=== PATIENT | female | born 1955 | race Two or more races ===

== ENCOUNTER → 2016-07-30 | Outpatient (REF) | payer MEDICAID | LOC: M SFHCPLAZ 09:10 | PROVIDERS: ATTEND Nurse Practitioner Family | DX: I10 Essential (primary) hypertension (principal); E11.9 Type 2 diabetes mellitus without complications; E07.9 Disorder of thyroid, unspecified ==

== ENCOUNTER 2016-09-09 17:38 | Emergency (ER) | payer MEDICAID, OTHER ==
[~2016-09-09] VITALS: Ht 175.3 cm; Wt 77.1 kg
[2016-09-09] MEDS ORDERED: VITA500046 PO (18:03)
[2016-09-09] MEDS ORDERED: GING250C2 PO (18:03)
[2016-09-09] MEDS ORDERED: TIOT18INH INH (18:03)
[2016-09-09] MEDS ORDERED: SING10TA32 PO (18:03)
[2016-09-09] MEDS ORDERED: ASPI1TAB PO (18:03)
[2016-09-09] MEDS ORDERED: collagen (18:03)
[2016-09-09] MEDS ORDERED: GEMF600T PO (18:03)
[2016-09-09] MEDS ORDERED: FLON1SPR (18:03)
[2016-09-09] MEDS ORDERED: TOPR200T PO (18:03)
[2016-09-09] MEDS ORDERED: MAGN400C2 PO (18:03)
[2016-09-09] MEDS ORDERED: SIMV5TAB4 PO (18:03)
[2016-09-09] MEDS ORDERED: ACETAMINOPHEN 325 MG TAB PO ONE (20:15)
[2016-09-09 20:54] VITALS: BP 168/88
--- NOTE | 2016-09-10 00:26 | REP ---
Clinical: Trauma. Ecchymosis. Technique: AP, lateral, bilateral oblique views right hand. Findings: The osseous structures and joint spaces are intact and normal. There is no evidence for acute fracture or dislocation. Lateral view suggests soft tissue swelling overlying the metacarpophalangeal region. No subcutaneous emphysema or radiodense foreign body. Impression: Mild swelling. No acute fracture or dislocation. Signed by James Yeboah MD 09/10/2016 12:18 A
== END 2016-09-09 21:09 | disposition home or self-care (01) ==
LOC: M ED 18:56
DX: S60.221A Contusion of right hand, initial encounter (principal); J02.9 Acute pharyngitis, unspecified; R10.84 Generalized abdominal pain; X58.XXXA Exposure to other specified factors, initial encounter; Y92.9 Unspecified place or not applicable; Y93.9 Activity, unspecified; Y99.9 Unspecified external cause status; C34.90 Malignant neoplasm of unspecified part of unspecified bronchus or lung; I25.10 Atherosclerotic heart disease of native coronary artery without angina pectoris; I10 Essential (primary) hypertension; J45.909 Unspecified asthma, uncomplicated; K21.9 Gastro-esophageal reflux disease without esophagitis; F17.200 Nicotine dependence, unspecified, uncomplicated; Z79.82 Long term (current) use of aspirin; Z79.899 Other long term (current) drug therapy

== ENCOUNTER 2016-10-29 14:18 | Emergency (ER) | payer OTHER ==
[~2016-10-29] VITALS: Ht 175.3 cm; Wt 83.9 kg
[~2016-10-29 14:18] MED LIST changes: -AMOX500C PO; -ATOR1TAB19 PO; -CHEW500C2 PO; -DICY20TA11 PO; -DOCQ100C PO; -GARL1CAP PO; -GING250C PO; -IBUP-1114 PO; -MAGN1TAB25 PO; -METF500T PO; -SPIR1AER IN; -TOPR100T PO; -VITA-115 PO; -VITMTA PO
[2016-10-29] MEDS ORDERED: METF500T PO (14:49)
[2016-10-29] MEDS ORDERED: DICY20TA11 PO (14:49)
[2016-10-29] MEDS ORDERED: AMOX500C PO (14:49)
[2016-10-29] MEDS ORDERED: DOCQ100C PO (14:49)
[2016-10-29] MEDS ORDERED: ATOR1TAB19 PO (14:49)
[2016-10-29 15:35] LABS: BASO % 0.4 % (0.0-1.0); EOS # 0.1 K/mm3 (0.0-0.50); EOS % 1.5 % (0.0-3.0); LARGE UNSTAINED CELL # 0.2 K/mm3 (0.0-0.4); LARGE UNSTAINED CELL % 2.1 % (0.0-4.0); LYMPH # 3.3 K/mm3 (1.5-4.5); LYMPH % 37.2 % (24.0-44.0); MEAN CORPUSCULAR HEMOGLOBIN 31.3 pg (27.0-33.0); MEAN CORPUSCULAR HGB CONC 34.9 g/dl (32.0-36.5); MEAN CORPUSCULAR VOLUME 89.6 fl (80.0-96.0); MONO # 0.6 K/mm3 (0.0-0.8); MONO % 7.1 % (0.0-5.0); NEUTROPHILS # 4.4 K/mm3 (1.8-7.7); NEUTROPHILS % 51.7 % (36.0-66.0); PLATELET COUNT, AUTOMATED 176 k/mm3 (150-450); RED CELL DISTRIBUTION WIDTH 13.4 % (11.5-14.5); WHITE BLOOD COUNT 8.5 K/mm3 (4.0-10.0)
[2016-10-29 15:41] LABS: ALBUMIN/GLOBULIN RATIO 1.11 (1.00-1.93); ALKALINE PHOSPHATASE 79 U/L (45-117); ALT/SGPT 44 U/L (12-78); AMYLASE 51 U/L (25-115); ANION GAP 5 MEQ/L (8-16); AST/SGOT 22 U/L (15-37); BILIRUBIN,DIRECT < 0.1 MG/DL (0.0-0.2); BILIRUBIN,TOTAL 0.3 MG/DL (0.2-1.0); BLOOD UREA NITROGEN 19 MG/DL (7-18); CALCIUM LEVEL 9.4 MG/DL (8.5-10.1); CARBON DIOXIDE LEVEL 32 MEQ/L (21-32); CHLORIDE LEVEL 103 MEQ/L (98-107); GLOMERULAR FILTRATION RATE > 60.0 (>51); GLUCOSE, FASTING 102 MG/DL (70-105); POTASSIUM SERUM 4.3 MEQ/L (3.5-5.1); SODIUM LEVEL 140 MEQ/L (136-145); TOTAL PROTEIN 7.6 GM/DL (6.4-8.2)
--- NOTE | 2016-10-29 16:32 | REP ---
CT ABDOMEN AND PELVIS WITHOUT CONTRAST: CT abdomen and pelvis was performed without oral or IV contrast. Sagittal and coronal reconstruction images are performed. Visualized lung bases demonstrate mild fibrotic changes. Liver, spleen, adrenals, pancreas are grossly unremarkable. The patient has had cholecystectomy. I see no evidence of biliary dilatation. Tiny thor like calcification is seen in the right lower pole renal collecting system and another is seen in the left upper pole renal collecting system. No hydroureteronephrosis is seen. There are mild atherosclerotic calcifications of the abdominal aorta without aneurysm. There is no adenopathy. There is no free or free fluid. No bowel wall thickening is seen. There is no evidence of a pelvic mass. IMPRESSION: Tiny intrarenal calculus in each kidney without evidence of ureteral calculus or hydroureteronephrosis. No evidence of appendicitis. No free air or free fluid. No other significant acute abnormality. Signed by Eusebio Edouard MD 10/29/2016 04:50 P
[2016-10-29 18:13] LABS: METHADONE URINE NEGATIVE (NEGATIVE)
[2016-10-29] MEDS ORDERED: MAGN1TAB25 PO (19:33)
[2016-10-29] MEDS ORDERED: GING250C PO (19:33)
[2016-10-29] MEDS ORDERED: TOPR100T PO (19:33)
[2016-10-29] MEDS ORDERED: SPIR1AER IN (19:33)
[2016-10-29] MEDS ORDERED: GARL1CAP PO (19:36)
[2016-10-29] MEDS ORDERED: IBUP-1114 PO (19:36)
[2016-10-29] MEDS ORDERED: VITA-115 PO (19:36)
[2016-10-29] MEDS ORDERED: VITMTA PO (19:36)
[2016-10-29] MEDS ORDERED: CHEW500C2 PO (19:36)
[2016-10-29 20:24] VITALS: BP 132/78
--- NOTE | 2016-10-29 21:53 | ECGEPIP ---
Stationary ECG Study [facility] - ED Test Date: 2016-10-29 Pat Name: LISA LEGGETT Department: Room: - Gender: F A&P Technician: oumou : 1955 Requested By: CONNOR GIL Order Number: [id number] Reading MD: Theodore Luna Measurements Intervals [place] Rate: 60 P: 38 MT: 199 QRS: -1 QRSD: 92 T: -13 QT: 416 QTc: 417 Interpretive Statements SINUS RHYTHM INC. RBBB PRWP NSTTW ABNORMALITIES NO PRIORS Electronically Signed On 10-29-2016 21:53:15 EDT by Theodore Luna
== END 2016-10-29 20:46 | disposition home or self-care (01) ==
LOC: EDBD 14:18 → M ED 15:02
DX: N20.0 Calculus of kidney (principal); F20.9 Schizophrenia, unspecified; F31.9 Bipolar disorder, unspecified; E03.9 Hypothyroidism, unspecified; I10 Essential (primary) hypertension; J44.9 Chronic obstructive pulmonary disease, unspecified; E78.00 Pure hypercholesterolemia, unspecified; Z87.891 Personal history of nicotine dependence; Z79.899 Other long term (current) drug therapy; Z79.82 Long term (current) use of aspirin; Z79.84 Long term (current) use of oral hypoglycemic drugs; Z79.2 Long term (current) use of antibiotics

== ENCOUNTER → 2016-10-29 | Outpatient (REF) | payer OTHER ==
[~2016-10-29] MED LIST: AMOX500C PO; ASPI1TAB PO; ATOR1TAB19 PO; CHEW500C2 PO; DICY20TA11 PO; DOCQ100C PO; FLON1SPR; GARL1CAP PO; GEMF600T PO; GING250C PO; GING250C2 PO; IBUP-1114 PO; MAGN1TAB25 PO; MAGN400C2 PO; METF500T PO; SIMV5TAB4 PO; SING10TA32 PO; SPIR1AER IN; TIOT18INH INH; TOPR100T PO; TOPR200T PO; VITA-115 PO; VITA500046 PO; VITMTA PO; collagen
== END ==
LOC: M SFHCLERA 12:33
PROVIDERS: ATTEND Nurse Practitioner Family
DX: R10.9 Unspecified abdominal pain (principal)

== ENCOUNTER 2016-12-27 17:34 | Emergency (ER) | payer OTHER ==
[~2016-12-27] VITALS: Ht 175.3 cm; Wt 86.0 kg
[~2016-12-27 17:34] MED LIST changes: +AMOX500C PO; +ATOR1TAB19 PO; +CHEW500C2 PO; +DICY20TA11 PO; +DOCQ100C PO; +GARL10004 PO; +GING250C PO; +IBUP-1114 PO; +MAGN1TAB25 PO; +METF500T13 PO; +SPIR1AER INH; +TOPR100T PO; +VITA-115 PO; +VITMTA PO
[2016-12-27] MEDS ORDERED: TRAZ-136 PO (17:48)
[2016-12-27] MEDS ORDERED: REXU1TAB2 (17:48)
[2016-12-27] MEDS ORDERED: OXCA150T PO (17:48)
[2016-12-27 18:42] LABS: MEAN CORPUSCULAR HGB CONC 33.5 g/dl (32.0-36.5); MEAN CORPUSCULAR VOLUME 89.5 fl (80.0-96.0); RED CELL DISTRIBUTION WIDTH 13.3 % (11.5-14.5)
[2016-12-27 18:59] LABS: CONTROL LINE HCG INT CTR LINE PRESENT
[2016-12-27 19:02] LABS: METHADONE URINE NEGATIVE (NEGATIVE)
[2016-12-27 19:13] LABS: ALBUMIN 4.1 GM/DL (3.2-5.2); ALBUMIN/GLOBULIN RATIO 1.28 (1.00-1.93); ALKALINE PHOSPHATASE 77 U/L (45-117); ALT/SGPT 56 U/L (12-78); ANION GAP 6 MEQ/L (8-16); AST/SGOT 25 U/L (15-37); BILIRUBIN,DIRECT < 0.1 MG/DL (0.0-0.2); BILIRUBIN,TOTAL 0.3 MG/DL (0.2-1.0); BLOOD UREA NITROGEN 18 MG/DL (7-18); CARBON DIOXIDE LEVEL 30 MEQ/L (21-32); CHLORIDE LEVEL 104 MEQ/L (98-107); CREATININE FOR GFR 0.76 MG/DL (0.55-1.02); GLOMERULAR FILTRATION RATE > 60.0 (>51); GLUCOSE, FASTING 127 MG/DL (70-105); POTASSIUM SERUM 3.6 MEQ/L (3.5-5.1); SODIUM LEVEL 140 MEQ/L (136-145); TOTAL PROTEIN 7.3 GM/DL (6.4-8.2)
[2016-12-27] MEDS ORDERED: traZODone 100 MG TAB PO ONE (20:45)
[2016-12-27] MEDS ORDERED: OXcarbazepine 150 MG TAB PO SCH (21:00)
[2016-12-27] MEDS ORDERED: FLUTICASONE PROP 0.05% NASAL SPRAY 16 GM (FLONASE) ONE (21:00)
[2016-12-27] MEDS ORDERED: IBUPROFEN 600 MG TAB PO ONE (21:15)
[2016-12-28 13:15] VITALS: BP 159/83
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
== END 2016-12-28 13:16 | disposition home or self-care (01) ==
LOC: M ED 17:34
DX: F31.9 Bipolar disorder, unspecified (principal); I10 Essential (primary) hypertension; E11.9 Type 2 diabetes mellitus without complications; E78.5 Hyperlipidemia, unspecified; K44.9 Diaphragmatic hernia without obstruction or gangrene; M19.90 Unspecified osteoarthritis, unspecified site; Z85.118 Personal history of other malignant neoplasm of bronchus and lung; Z79.899 Other long term (current) drug therapy; Z79.82 Long term (current) use of aspirin; Z79.84 Long term (current) use of oral hypoglycemic drugs

== ENCOUNTER → 2017-01-07 | Outpatient (REF) | payer OTHER ==
[~2017-01-07] MED LIST changes: +ASPI81CH PO; +ATOR80TA59 PO; +BENZ0.5T PO; +CINN500C9 PO; +CIPR-249 PO; +D-50TAB PO; +HYDR-643 PO; +OMEP40CA2 PO; +OXCA150T PO; +RANI300T PO; +REXU1TAB2; +REXU1TAB4 PO; +RISP1TAB42 PO; +TRAZ-136 PO; +TURM500C3 PO; +VITA10002 PO; +ZINC30CA PO
[2017-01-07 20:15] LABS: ALBUMIN 4.4 GM/DL (3.2-5.2); ALBUMIN/GLOBULIN RATIO 1.52 (1.00-1.93); ALKALINE PHOSPHATASE 82 U/L (45-117); ALT/SGPT 42 U/L (12-78); ANION GAP 9 MEQ/L (8-16); AST/SGOT 24 U/L (15-37); BILIRUBIN,TOTAL 0.8 MG/DL (0.2-1.0); BLOOD UREA NITROGEN 8 MG/DL (7-18); CALCIUM LEVEL 9.1 MG/DL (8.5-10.1); CARBON DIOXIDE LEVEL 27 MEQ/L (21-32); CHLORIDE LEVEL 99 MEQ/L (98-107); CHOLESTEROL LEVEL 164 MG/DL (<200); CREATININE FOR GFR 0.64 MG/DL (0.55-1.02); FREE T4 1.11 NG/DL (0.76-1.46); GLOMERULAR FILTRATION RATE > 60.0 (>51); GLUCOSE, FASTING 103 MG/DL (70-105); POTASSIUM SERUM 3.9 MEQ/L (3.5-5.1); SODIUM LEVEL 135 MEQ/L (136-145); TOTAL PROTEIN 7.3 GM/DL (6.4-8.2); TRIGLYCERIDES LEVEL 235 MG/DL (<150)
[2017-01-07 20:28] LABS: BASO % 0.6 % (0.0-1.0); EOS # 0.1 K/mm3 (0.0-0.50); EOS % 1.1 % (0.0-3.0); LARGE UNSTAINED CELL # 0.1 K/mm3 (0.0-0.4); LYMPH # 2.3 K/mm3 (1.5-4.5); LYMPH % 34.1 % (24.0-44.0); MEAN CORPUSCULAR HEMOGLOBIN 30.8 pg (27.0-33.0); MEAN CORPUSCULAR HGB CONC 34.5 g/dl (32.0-36.5); MEAN CORPUSCULAR VOLUME 89.1 fl (80.0-96.0); MONO # 0.4 K/mm3 (0.0-0.8); MONO % 6.3 % (0.0-5.0); NEUTROPHILS # 3.8 K/mm3 (1.8-7.7); NEUTROPHILS % 55.8 % (36.0-66.0); PLATELET COUNT, AUTOMATED 175 k/mm3 (150-450); RED CELL DISTRIBUTION WIDTH 12.9 % (11.5-14.5); WHITE BLOOD COUNT 6.7 K/mm3 (4.0-10.0)
== END ==
LOC: M SFHCLERA 15:10
PROVIDERS: ATTEND Family Medicine
DX: Z00.00 Encounter for general adult medical examination without abnormal findings (principal); J44.9 Chronic obstructive pulmonary disease, unspecified

== ENCOUNTER → 2017-01-09 | Outpatient (REF) | payer OTHER ==
[2017-01-13 00:11] LABS: Lyme Disease IgG/IgM Antibodie <0.91 ISR (0.00-0.90); Lyme Disease IgM Ab Quantitati <0.80 index (0.00-0.79)
== END ==
LOC: M SFHCLERA 15:50
PROVIDERS: ATTEND Family Medicine
DX: S80.862A Insect bite (nonvenomous), left lower leg, initial encounter (principal); E53.8 Deficiency of other specified B group vitamins; W18.30XA Fall on same level, unspecified, initial encounter; Y92.009 Unspecified place in unspecified non-institutional (private) residence as the place of occurrence of the external cause

== ENCOUNTER 2017-01-22 00:49 | Inpatient (IN) | payer OTHER ==
[~2017-01-22] VITALS: Ht 174 cm; Wt 85.3 kg
[~2017-01-22 00:49] MED LIST changes: -ASPI81CH PO; -ATOR80TA59 PO; -BENZ0.5T PO; -CINN500C9 PO; -CIPR-249 PO; -D-50TAB PO; -HYDR-643 PO; -OMEP40CA2 PO; -RANI300T PO; -REXU1TAB4 PO; -RISP1TAB42 PO; -TURM500C3 PO; -VITA10002 PO; -ZINC30CA PO
[2017-01-22 02:04] LABS: MEAN CORPUSCULAR HEMOGLOBIN 31.1 pg (27.0-33.0); MEAN CORPUSCULAR HGB CONC 35.3 g/dl (32.0-36.5); MEAN CORPUSCULAR VOLUME 88.1 fl (80.0-96.0); RED CELL DISTRIBUTION WIDTH 13.1 % (11.5-14.5)
[2017-01-22] MEDS ORDERED: MAALOX 30 ML SUSP *UDC PO PRN (02:15)
[2017-01-22] MEDS ORDERED: ACETAMINOPHEN TAB 650MG DOSE (2X325MG) PO PRN (02:15)
[2017-01-22] MEDS ORDERED: traZODone 50 MG TAB PO PRN (02:15)
[2017-01-22] MEDS ORDERED: MOM 30ML SUSPENSION UDC PO PRN (02:15)
[2017-01-22] MEDS ORDERED: hydrOXYzine 25 MG TAB PO PRN (02:30)
[2017-01-22 02:44] LABS: METHADONE URINE NEGATIVE (NEGATIVE)
[2017-01-22 02:53] LABS: ALBUMIN 4.4 GM/DL (3.2-5.2); ALBUMIN/GLOBULIN RATIO 1.29 (1.00-1.93); ALKALINE PHOSPHATASE 84 U/L (45-117); ALT/SGPT 55 U/L (12-78); ANION GAP 10 MEQ/L (8-16); AST/SGOT 25 U/L (15-37); BILIRUBIN,DIRECT < 0.1 MG/DL (0.0-0.2); BILIRUBIN,TOTAL 0.4 MG/DL (0.2-1.0); BLOOD UREA NITROGEN 13 MG/DL (7-18); CALCIUM LEVEL 9.3 MG/DL (8.5-10.1); CARBON DIOXIDE LEVEL 28 MEQ/L (21-32); CHLORIDE LEVEL 99 MEQ/L (98-107); CREATININE FOR GFR 0.81 MG/DL (0.55-1.02); GLOMERULAR FILTRATION RATE > 60.0 (>51); GLUCOSE, FASTING 132 MG/DL (70-105); POTASSIUM SERUM 3.8 MEQ/L (3.5-5.1); SODIUM LEVEL 137 MEQ/L (136-145); TOTAL PROTEIN 7.8 GM/DL (6.4-8.2)
[2017-01-22 04:25] VITALS: BP 126/79
[2017-01-22] MEDS ORDERED: ZINC30CA PO (05:41)
[2017-01-22] MEDS ORDERED: BENZ0.5T PO (05:41)
[2017-01-22] MEDS ORDERED: OMEP40CA2 PO (05:41)
[2017-01-22] MEDS ORDERED: ATOR80TA59 PO (05:41)
[2017-01-22] MEDS ORDERED: CINN500C9 PO (05:41)
[2017-01-22] MEDS ORDERED: TURM500C3 PO (05:41)
[2017-01-22] MEDS ORDERED: HYDR-643 PO (05:41)
[2017-01-22] MEDS ORDERED: RANI300T PO (05:41)
[2017-01-22] MEDS ORDERED: ASPI81CH PO (05:41)
[2017-01-22] MEDS ORDERED: REXU1TAB4 PO (05:41)
[2017-01-22] MEDS ORDERED: VITA10002 PO (05:41)
[2017-01-22] MEDS ORDERED: D-50TAB PO (05:41)
[2017-01-22] MEDS: risperiDONE 0.5 MG TAB PO SCH ×2 (08:29→22:09)
[2017-01-22] MEDS ORDERED: ASPIRIN 81 MG CHEW TABLET PO PRN (10:15)
[2017-01-22] MEDS ORDERED: IBUPROFEN 400 MG TAB PO PRN (10:15)
[2017-01-22] MEDS: OMEPRAZOLE 20 MG CAP PO SCH (11:04)
[2017-01-22] MEDS: OXcarbazepine 150 MG TAB PO SCH ×2 (11:04→22:10)
[2017-01-22] MEDS: MAGNESIUM OXIDE 400 MG TAB (MAG-OX) PO SCH (11:04)
[2017-01-22] MEDS: VITAMIN D 1,000 INTERNATIONAL UNITS TABLET PO SCH (11:04)
--- NOTE | 2017-01-22 11:19 | HPEPDOC ---
Medical History and Physical Date of Admission Jan 22, 2017 at 02:27 History and Physical PCP: Dr Perez ATTENDING: Dr. Rian Odonnell HPI: 61yoM admitted to [facility] for unspecified psychotic disorder, being medically examined today. No acute medical complaints today. Denies any fevers, chills, weakness, fatigue, PRATER, CP, SOB, cough, palpitations, abdominal pain, N/V/D or changes in bowel or bladder habits. PMHx: Bipolar disorder Schizophrenia Hypothyroid/thyroid nodule. FNA 09/11 negative. Follows with [facility]. Osteoarthritis Dyslipidemia Fatty liver Spasmodic colon/IBS Allergic rhinitis Hiatal hernia Essential tremor Lymphoma History of lung cancer GERD/Sanchez's DM 2 Hypertension HSV PSHX: EGD [place] 09/11 gastritis. Tonsillectomy 3 Cholecystectomy Hysterectomy Cyst removed from lower extremity SOCHX: Resides in: [facility] Marital Status: Single Kids: 2 Employment: Unemployed Tobacco use: 1-2 per day ETOH: denies Illicit Drugs: Denies IV Drug Use: Denies Tattoos done unprofessionally: Denies FAMHX: Mother: Alive, Crohn's disease Father: , complications of diabetes Siblings: 2 brothers, one sister Alive, well Children: Alive, well Unexpected deaths due to medical reasons: None. ROS: As noted in HPI, otherwise 11pt ROS of systems reviewed and remarkable only for LMP unknown. PE: GEN: 61yoF, appears stated age. Well-nourished, well developed. No acute distress. Alert and oriented x 3. Tangential speech. HEENT: Normocephalic, atraumatic. Pupils are equal, round, and reactive to light. Extraocular movements are intact. No nystagmus appreciated. Sclera are nonicteric. Conjunctiva without injection. Nose midline. Nasal turbinates without bogginess. EACs both patent BL. TMs both visualized and ledezma with good cone of light, no bulging or erythema. No facial asymmetry. Moist mucous membranes. Dentition fair. Pharynx pink and moist, no cobblestoning. Neck supple , trachea midline. No lymphadenopathy or thyromegaly appreciated. CHEST: Regular rate and rhythm, +S1, +S2 LUNGS: Clear to auscultation bilaterally. No wheezes, rales, or rhonchi. Breathing appears symmetric and easy. Patient is speaking in full sentences. No accessory muscle use. ABD: Round, soft, non-tender, non-distended. +Bowel sounds throughout. No rebound or guarding. No costovertebral angle tenderness. EXT: Pulses 2+ bilaterally dorsalis pedis and radial. No lower extremity edema appreciated. SKIN: [place], dry, warm. Capillary refill <2sec. No rashes. NEURO: Alert and oriented x 3. Cranial nerves III-XII are intact. No focal deficits appreciated. EKG: pending. A&P: 61yoM admitted to [facility] for unspecified psychotic disorder 1. Psych. Plan per Psychiatry. Obtain baseline EKG to assure the safety of psychiatric medications as they can prolong the QT interval. 2. Nicotine dependence. Patch available. 3. Allergic rhinitis. Continue Flonase 2 sprays each nostril daily. 4. Follow up with PCP on discharge. 5. Dyslipidemia. Continue Lipitor 80 mg daily. 6. IBS. Continue dicyclomine 20 mg 3 times a day. 7. DM 2. Continue metformin 500 mg by mouth twice a day. Fingerstick blood sugar twice a day. A1c is noted to be 6.01/07/17. 8. COPD. Continue Spiriva 1 inhalation daily. 9. GERD/Sanchez's. Continue Prilosec 40 mg daily. 10. Hypertension. Continue Toprol-XL 100 mg daily. 11. Elevated TSH. Recheck TFTs in a.m. 12. Staff member Elisa present throughout exam. Vital Signs Vital Signs Date Time Temp Pulse Resp B/P (MAP) Pulse Ox O2 Delivery O2 Flow Rate FiO2 01/22/17 04:25 99.0 62 20 126/79 97 Room Air Laboratory Data Labs 24H Laboratory Tests 2 01/22/17 01:50: Anion Gap 10, Glomerular Filtration Rate > 60.0, Calcium Level 9.3, Aspartate Amino Transf (AST/SGOT) 25, Alanine Aminotransferase (ALT/SGPT) 55, Alkaline Phosphatase 84, Total Bilirubin 0.4, Direct Bilirubin < 0.1, Total Protein 7.8, Albumin 4.4, Albumin/Globulin Ratio 1.29, Thyroid Stimulating Hormone (TSH) 6.660H, Salicylates Level < 1.7L, Urine Amphetamines Screen NEGATIVE, Urine Benzodiazepines Screen NEGATIVE, Urine Opiates Screen NEGATIVE, Urine Methadone Screen NEGATIVE, Acetaminophen Level < 2.0L, Urine Barbiturates Screen NEGATIVE , Urine Phencyclidine Screen NEGATIVE, Urine Cocaine Metabolite Screen NEGATIVE , Urine Cannabinoids Screen NEGATIVE, Ethyl Alcohol Level < 0.003 CBC/BMP Laboratory Tests 01/22/17 01:50 Red Blood Count 4.93, Mean Corpuscular Volume 88.1, Mean Corpuscular Hemoglobin 31.1, Mean Corpuscular Hemoglobin Concent 35.3, Red Cell Distribution Width 13.1 Home Medications Scheduled (Flonase Allergy Relief) 50 Mcg/Act Spr, 2 SPRAYS NA BID for ALLERGIES (Spiriva Respimat) 1.25 Mcg/Act Aer, 2 PUFF INH DAILY for COPD Atorvastatin Calcium (Atorvastatin Calcium) 80 Mg Tab, 80 MG PO QHS for CHOLESTEROL Benztropine Mesylate (Benztropine Mesylate) 0.5 Mg Tab, 0.5 MG PO QHS for EPS PREVENTION Brexpiprazole (Rexulti) 2 Mg Tab, 2 MG PO QHS for DEPRESSION Cholecalciferol (D-5000) 5,000 Unit Tab, 5,000 UNIT PO DAILY for SUPPLEMENT Cinnamon Bark (Cinnamon) 500 Mg Cap, 1,000 MG PO DAILY for SUPPLEMENT Curcuma Longa (Turmeric) Extra (Turmeric) 500 Mg Cap, 500 MG PO DAILY for SUPPLEMENT Cyanocobalamin (Vitamin B-12) 1,000 Mcg Tab, 1,000 MCG PO BID for SUPPLEMENT Dicyclomine HCl (Dicyclomine HCl) 20 Mg Tab, 20 MG PO TID for IBS Magnesium Oxide (Magnesium) 400 Mg Tab, 400 MG PO DAILY for SUPPLEMENT Metformin Hydrochloride (Metformin HCl) 500 Mg Tab, 500 MG PO BID for DIABETES Metoprolol Succinate (Toprol Xl) 100 Mg Tab, 100 MG PO DAILY for HBP BEEN TAKING IT TWICE A DAY BUT RX IS FOR ONCE A DAY Omeprazole (Omeprazole) 40 Mg Cap, 40 MG PO DAILY for ACID REFLUX Oxcarbazepine (Oxcarbazepine) 150 Mg Tab, 150 MG PO BID for EPILEPSY BEEN TAKING MEDICATION 300 MG IN MORNING AND 150 MG AT NIGHT BUT RX IS FOR 150 MG BID Ranitidine HCl (Ranitidine HCl) 300 Mg Tab, 1 TAB PO QHS for ACID REFLUX Zinc (Zinc) 30 Mg Cap, 30 MG PO QHS for SUPPLEMENT Scheduled PRN (Aspirin) 81 Mg Chw, 243 MG PO QPM PRN for CHEST PAIN Hydroxyzine HCl (Hydroxyzine HCl) 10 Mg Tab, 10 MG PO TID PRN for ANXIETY Ibuprofen (Ibuprofen) 400 Mg Tab, 400 MG PO Q4H PRN for PAIN Trazodone HCl (Trazodone HCl) 100 Mg Tab, 100 MG PO QHS PRN for SLEEP Allergies Coded Allergies: No Known Drug Allergy (Unverified Allergy, Mild, 09/30/12) Brooke Dodge Jan 22, 2017 11:19
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
[2017-01-22] MEDS: FLUTICASONE PROP 0.05% NASAL SPRAY 16 GM (FLONASE) SCH (13:35)
[2017-01-22] MEDS: CYANOCOBALAMIN 500 MCG TAB PO SCH ×2 (13:36→22:09)
[2017-01-22] MEDS: metFORMIN (GLUCOPHAGE) 500 MG TAB PO SCH ×2 (13:36→18:25)
[2017-01-22] MEDS: DICYCLOMINE 10 MG CAP PO SCH ×3 (13:36→22:10)
[2017-01-22] MEDS: TIOTROPIUM INHALER/CAPSULE (SPIRIVA) INH SCH (13:37)
[2017-01-22] MEDS: METOPROLOL SUCC (TopROL XL) 100MG *XL* TAB PO SCH (13:37)
[2017-01-22 18:00] VITALS: BP 102/58
[2017-01-22] MEDS: ATORVASTATIN 20 MG TAB PO SCH (22:09)
--- NOTE | 2017-01-23 00:29 | ECGEPIP ---
Stationary ECG Study [facility] Test Date: 2017-01-22 Pat Name: LISA LEGGETT Department: Room: [place] [address] Gender: F Warehouse Shift Supervisor: SULAIMAN : 1955 Requested By: Brooke Dodge Order Number: [id number] Reading MD: Rian Odonnell Measurements Intervals [place] Rate: 64 P: 52 TX: 220 QRS: 2 QRSD: 100 T: 3 QT: 393 QTc: 408 Interpretive Statements SINUS RHYTHM WITH FIRST DEGREE AV BLOCK Delayed anterior R wave progression Nonspecific T wave abnormality Electronically Signed On 01-23-2017 0:29:31 EDT by Rian Odonnell
[2017-01-23 06:21] VITALS: BP 147/87
[2017-01-23] MEDS: FLUTICASONE PROP 0.05% NASAL SPRAY 16 GM (FLONASE) SCH (08:17)
[2017-01-23] MEDS: metFORMIN (GLUCOPHAGE) 500 MG TAB PO SCH ×2 (08:18→18:00)
[2017-01-23] MEDS: TIOTROPIUM INHALER/CAPSULE (SPIRIVA) INH SCH (08:18)
[2017-01-23] MEDS: METOPROLOL SUCC (TopROL XL) 100MG *XL* TAB PO SCH (08:18)
[2017-01-23] MEDS: DICYCLOMINE 10 MG CAP PO SCH ×3 (08:18→21:44)
[2017-01-23] MEDS: MAGNESIUM OXIDE 400 MG TAB (MAG-OX) PO SCH (08:19)
[2017-01-23] MEDS: OMEPRAZOLE 20 MG CAP PO SCH (08:19)
[2017-01-23] MEDS: CYANOCOBALAMIN 500 MCG TAB PO SCH ×2 (08:19→21:44)
[2017-01-23] MEDS: risperiDONE 0.5 MG TAB PO SCH ×2 (08:19→21:44)
[2017-01-23] MEDS: VITAMIN D 1,000 INTERNATIONAL UNITS TABLET PO SCH (08:19)
[2017-01-23] MEDS: OXcarbazepine 150 MG TAB PO SCH ×2 (08:19→21:44)
[2017-01-23 18:00] VITALS: BP 135/85
[2017-01-23] MEDS: CIPROFLOXACIN 500 MG TAB PO SCH (18:00)
[2017-01-23] MEDS: ATORVASTATIN 20 MG TAB PO SCH (21:44)
[2017-01-24] MEDS ORDERED: LEVOTHYROXINE 50MCG TABLET (0.05MG) PO SCH (06:00)
[2017-01-24] MEDS: CIPROFLOXACIN 500 MG TAB PO SCH ×2 (06:13→17:10)
[2017-01-24 06:31] VITALS: BP 146/92
[2017-01-24 08:29] VITALS: BP 132/72
[2017-01-24] MEDS: metFORMIN (GLUCOPHAGE) 500 MG TAB PO SCH ×2 (08:30→17:10)
[2017-01-24] MEDS: METOPROLOL SUCC (TopROL XL) 100MG *XL* TAB PO SCH (08:30)
[2017-01-24] MEDS: MAGNESIUM OXIDE 400 MG TAB (MAG-OX) PO SCH (08:31)
[2017-01-24] MEDS: OXcarbazepine 150 MG TAB PO SCH ×2 (08:31→20:40)
[2017-01-24] MEDS: CYANOCOBALAMIN 500 MCG TAB PO SCH ×2 (08:31→20:41)
[2017-01-24] MEDS: DICYCLOMINE 10 MG CAP PO SCH ×3 (08:31→20:41)
[2017-01-24] MEDS: VITAMIN D 1,000 INTERNATIONAL UNITS TABLET PO SCH (08:31)
[2017-01-24] MEDS: risperiDONE 1 MG TAB PO SCH ×2 (08:31→20:41)
[2017-01-24] MEDS: OMEPRAZOLE 20 MG CAP PO SCH (08:31)
[2017-01-24] MEDS: TIOTROPIUM INHALER/CAPSULE (SPIRIVA) INH SCH (08:32)
[2017-01-24] MEDS: FLUTICASONE PROP 0.05% NASAL SPRAY 16 GM (FLONASE) SCH (08:32)
[2017-01-24 18:11] VITALS: BP 132/86
[2017-01-24] MEDS: ATORVASTATIN 20 MG TAB PO SCH (20:41)
[2017-01-25] MEDS: CIPROFLOXACIN 500 MG TAB PO SCH ×2 (05:55→17:29)
[2017-01-25 06:01] VITALS: BP 138/92
[2017-01-25] MEDS: metFORMIN (GLUCOPHAGE) 500 MG TAB PO SCH ×2 (08:48→17:29)
[2017-01-25] MEDS: risperiDONE 1 MG TAB PO SCH ×2 (08:48→21:19)
[2017-01-25] MEDS: MAGNESIUM OXIDE 400 MG TAB (MAG-OX) PO SCH (08:48)
[2017-01-25] MEDS: OXcarbazepine 150 MG TAB PO SCH ×2 (08:48→21:19)
[2017-01-25] MEDS: CYANOCOBALAMIN 500 MCG TAB PO SCH ×2 (08:49→21:19)
[2017-01-25] MEDS: OMEPRAZOLE 20 MG CAP PO SCH (08:49)
[2017-01-25] MEDS: VITAMIN D 1,000 INTERNATIONAL UNITS TABLET PO SCH (08:49)
[2017-01-25] MEDS: DICYCLOMINE 10 MG CAP PO SCH ×3 (08:50→21:19)
[2017-01-25] MEDS: METOPROLOL SUCC (TopROL XL) 100MG *XL* TAB PO SCH (08:50)
[2017-01-25] MEDS: TIOTROPIUM INHALER/CAPSULE (SPIRIVA) INH SCH (08:50)
[2017-01-25] MEDS: FLUTICASONE PROP 0.05% NASAL SPRAY 16 GM (FLONASE) SCH (08:59)
[2017-01-25 18:19] VITALS: BP 139/81
[2017-01-25] MEDS: ATORVASTATIN 20 MG TAB PO SCH (21:19)
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
[2017-01-26] MEDS: CIPROFLOXACIN 500 MG TAB PO SCH (06:03)
[2017-01-26 06:35] VITALS: BP 149/73
[2017-01-26] MEDS: OMEPRAZOLE 20 MG CAP PO SCH (08:21)
[2017-01-26] MEDS: FLUTICASONE PROP 0.05% NASAL SPRAY 16 GM (FLONASE) SCH (08:21)
[2017-01-26] MEDS: TIOTROPIUM INHALER/CAPSULE (SPIRIVA) INH SCH (08:21)
[2017-01-26] MEDS: CYANOCOBALAMIN 500 MCG TAB PO SCH (08:21)
[2017-01-26 08:22] VITALS: BP 148/73
[2017-01-26] MEDS: risperiDONE 1 MG TAB PO SCH (08:22)
[2017-01-26] MEDS: metFORMIN (GLUCOPHAGE) 500 MG TAB PO SCH (08:22)
[2017-01-26] MEDS: OXcarbazepine 150 MG TAB PO SCH (08:22)
[2017-01-26] MEDS: VITAMIN D 1,000 INTERNATIONAL UNITS TABLET PO SCH (08:22)
[2017-01-26] MEDS: MAGNESIUM OXIDE 400 MG TAB (MAG-OX) PO SCH (08:22)
[2017-01-26] MEDS: METOPROLOL SUCC (TopROL XL) 100MG *XL* TAB PO SCH (08:22)
[2017-01-26] MEDS: DICYCLOMINE 10 MG CAP PO SCH ×2 (08:26→16:08)
--- NOTE | 2017-01-26 10:27 | MHIPN ---
DATE OF SERVICE: 01/24/2017 61-year-old female called 911 and complained of feeling that a worm was moving inside of her on her forehead. She says that she has been diagnosed as having worms by her primary care physician but he never did anything to treat her parasites. Patient reported having problems in her bowel, having problems with her housing because people walk into her apartment, stoled things, borrow things , left hair inside of the fridge. SUBJECTIVE: Patient says that her thoughts are more clear. She still has physical complaints, regarding her stomach and she still believes that she has worms but she is not as persistent with this information as she was before. She says she has had a good sleep, reports good appetite and good spirits. Denies suicidal ideation and denies psychosis. OBJECTIVE: Patient is alert, oriented times three, pleasant, cooperative and engaging. Her speech is soft spoken, coherent. Her thought process is irrational. Her thought content is still anxious upon physical complaints and doctor's appointment. She denies auditory hallucinations, visual hallucinations. Denies thought delusions. She still is not conscious about the sensation that she has of having a worm moving in her body of being a delusion. She still believes this is true. Her attention and concentration are fair. Her memory is limited. Her fund of knowledge is fair. Her mood and affect are euthymic. Her judgment and insight are limited. Her impulse control is good. ASSESSMENT: Unspecified psychotic disorder. MANAGEMENT: Patient will continue on the same medications. Currently, she is taking for her psychosis Risperdal 1 mg twice a day. She is taking trazodone 50 mg by mouth nightly as needed for insomnia, Atarax 25 mg by mouth by mouth every 6 hours as needed for anxiety and she is not taking any antidepressant because it is not clear if the patient suffers from bipolar disorder and for that reason no antidepressant was started on the patient, but she was not depressed either. The diagnosis seems to be more oriented towards a psychotic disorder, most likely a delusional disorder or schizophrenia. Patient is not dangerous to self or others. She is delusional but she is pleasant and she is not aggressive. It has been noticed that she suffers from a urinary tract infection and she was started on ciprofloxacin 500 mg by mouth twice a day. This urinary tract infection (UTI ) could have been influencing her mood and her mental changes. She also has thyroid nodules and thyroid and the thyroid compromise could be involved in her mental problems. Will wait until she improves from her medical problems and to try to rule out psychotic problem secondary to medical condition. Will followup and monitor closely. Edited: josep 02/09/2017 1417 MTDD
[2017-01-26] MEDS ORDERED: CIPR-249 PO (10:45)
[2017-01-26] MEDS ORDERED: RISP1TAB42 PO (10:45)
--- NOTE | 2017-01-26 17:31 | MHIPN ---
DATE: 01/25/2017 61-year-old female who was admitted because she called 911 and told them that she felt that a worm was growing inside of her belly and was moving around, she also felt it in her forehead. SUBJECTIVE: Patient reports feeling well, is requesting to get discharged tomorrow morning, says that she has already called her son to pick her up, and reports that she can not pick her appointment with her primary care provider because she wants to be put on levadopa once again. OBJECTIVE: Patient is alert, oriented times three, cooperative with interview, engaging. Her speech is soft and coherent, her thought process is irrational, her thought content is anxious about keeping her medical appointment. She denies homicidal and suicidal ideation. Denies auditory and visual hallucinations. Denies thought delusions. She has not been seen responding to internal stimuli but she has somatic delusions. Her memory is intact, attention and concentration are good, oriented times three. Abstract thinking is fair, mood and affect are brighter. Insight and judgment are limited and impulse control is good. ASSESSMENT: Delusional disorder, rule out schizophrenia. PLAN: Patient is in no danger to self or others, she could be discharged tomorrow depending on inquires from case picker Nadia, patients living situations, and if she is able to receive enough support from her children, neighbors. At this time patient is not suicidal, not homicidal and her psychosis has improved. Her thoughts are more clear, she is ready to be discharged. Will followup.
--- NOTE | 2017-01-26 22:05 | MHDSPDOC ---
[facility] Discharge Summary Discharge Summary DATE OF ADMISSION: Jan 22, 2017 at 02:27 DATE OF DISCHARGE: Jan 26, 2017 at 16:15 DISCHARGE DIAGNOSES: 1. Delusional Disorder 2. R/O Schizophrenia. REASON FOR ADMISSION: Patient called 911 because she felt a worm was moving inside her abdomen, she could feel it on her forehead too. CONSULTANTS INVOLVED: None TREATMENT AND PROGRESS ON THE UNIT : Patient was started on antipsychotic medication and she had a good response to it. She was still delusional with medications but she was never aggressive or violent, she was not paranoid or suspicions. She was pleasant and cooperative, fixed on multiple somatic complaints that involved the beleif she has Parkinson's disease, so she requested levodopa several times, she also believed she had a lymphoma and she kept thinking she had worms, but the frequency of these delusional thoughts decreased. She was never a danger to self or others. HOSPITAL COURSE: As above DISCHARGE ASSESSMENT: Patient was not suicidal, not homicidal, was not responding to internal stimuli. MENTAL STATUS EXAMINATION ON DISCHARGE: Patient is a 61-year old female, who is alert, cooperative, pleasant, with good eye contact. Speech is Normal. Language skills are fair. Thought processes including: Slightly tangential, irrational Thought content: Goal directed Abstract reasoning, and computation: Fair Description of associations: Good. Description of abnormal or psychotic thoughts: Delusional thoughts, somatic nature. Denies suicidal or homicidal ideation, denies auditory or visual hallucinations. Judgment: Fair. Insight: Limited. Orientation to Oriented x 3. Recent and remote memory: Fair. Attention span and concentration: Fair. Language: Normal. Fund of knowledge: Fair. Mood: "iI feel I'm in a better mood, my thoughts are more clear". Affect: Euthymic. MEDICATIONS ON DISCHARGE: - Risperdal 1 mg. PO BID for psychosis. - Trazodone 100 mgs PO QHS for insomnia - Trileptal 150 mgs PO BID for seizure disorder -Ciprofloxacin 500 mgs PO BID for UTI PLAN/FOLLOWUP ARRANGEMENTS: * Medical * Medical Follow Up [facility]- Dr. Yasmeen Perez * Established With This Provider Yes * Date Feb 05, 2017 * Time 08:00 * Address of Clinic or Practice [address] [place] [address] * * Mental Health Appt 1 * Established With This Provider Yes * Therapist Diandra Pulliam LCSW * Date Jan 30, 2017 * Time 13:00 * Address of Clinic or Practice [address] [place] [address] * The amount of time spent in the coordination of care for this patient was approximately 45 minutes. Vital Signs/I&Os Vital Signs Date Time Temp Pulse Resp B/P (MAP) Pulse Ox O2 Delivery O2 Flow Rate FiO2 01/26/17 08:22 66 148/73 01/26/17 06:35 97.3 18 01/22/17 04:25 97 Room Air Laboratory Data Microbiology Microbiology 01/23/17 Gastrointestinal Tract Panel (PCR) - Final, Complete 01/23/17 Urine Culture - Final, Complete Medications Scheduled (Flonase Allergy Relief) 50 Mcg/Act Spr, 2 SPRAYS NA BID for ALLERGIES, ( Reported) (Spiriva Respimat) 1.25 Mcg/Act Aer, 2 PUFF INH DAILY for COPD, (Reported) Atorvastatin Calcium (Atorvastatin Calcium) 80 Mg Tab, 80 MG PO QHS for CHOLESTEROL, (Reported) Benztropine Mesylate (Benztropine Mesylate) 0.5 Mg Tab, 0.5 MG PO QHS for EPS PREVENTION, (Reported) Cholecalciferol (D-5000) 5,000 Unit Tab, 5,000 UNIT PO DAILY for SUPPLEMENT, ( Reported) Ciprofloxacin HCl (Cipro) 500 Mg Tab, 500 MG PO BID@06,18 for UTI, #8 Cyanocobalamin (Vitamin B-12) 1,000 Mcg Tab, 1,000 MCG PO BID for SUPPLEMENT, ( Reported) Dicyclomine HCl (Dicyclomine HCl) 20 Mg Tab, 20 MG PO TID for IBS, (Reported) Magnesium Oxide (Magnesium) 400 Mg Tab, 400 MG PO DAILY for SUPPLEMENT, ( Reported) Metformin Hydrochloride (Metformin HCl) 500 Mg Tab, 500 MG PO BID for DIABETES, (Reported) Metoprolol Succinate (Toprol Xl) 100 Mg Tab, 100 MG PO DAILY for HBP, (Reported) BEEN TAKING IT TWICE A DAY BUT RX IS FOR ONCE A DAY Omeprazole (Omeprazole) 40 Mg Cap, 40 MG PO DAILY for ACID REFLUX, (Reported) Oxcarbazepine (Oxcarbazepine) 150 Mg Tab, 150 MG PO BID for EPILEPSY, (Reported) BEEN TAKING MEDICATION 300 MG IN MORNING AND 150 MG AT NIGHT BUT RX IS FOR 150 MG BID Ranitidine HCl (Ranitidine HCl) 300 Mg Tab, 1 TAB PO QHS for ACID REFLUX, ( Reported) Risperidone (Risperdal) 1 Mg Tab, 1 MG PO BID for PSYCHOSIS, #14 Zinc (Zinc) 30 Mg Cap, 30 MG PO QHS for SUPPLEMENT, (Reported) Scheduled PRN (Aspirin) 81 Mg Chw, 243 MG PO QPM PRN for CHEST PAIN, (Reported) Hydroxyzine HCl (Hydroxyzine HCl) 10 Mg Tab, 10 MG PO TID PRN for ANXIETY, ( Reported) Ibuprofen (Ibuprofen) 400 Mg Tab, 400 MG PO Q4H PRN for PAIN, (Reported) Trazodone HCl (Trazodone HCl) 100 Mg Tab, 100 MG PO QHS PRN for SLEEP, (Reported ) Allergies Coded Allergies: No Known Drug Allergy (Unverified Allergy, Mild, 09/30/12) YAMINI NO MD Jan 26, 2017 22:05
[2017-01-27 14:15] LABS: O+P EXAM Final report (.)
== END 2017-01-26 16:15 | disposition home or self-care (01) | DRG 760 ==
LOC: M ED 00:49 → M ED INP 02:27 → M PSY 04:26
PROVIDERS: ADMIT Psychiatry & Neurology Psychiatry; ATTEND Psychiatry & Neurology Psychiatry
DX: F22 Delusional disorders (principal); K76.0 Fatty (change of) liver, not elsewhere classified; N39.0 Urinary tract infection, site not specified; K22.70 Barrett's esophagus without dysplasia; B00.9 Herpesviral infection, unspecified; I10 Essential (primary) hypertension; E11.9 Type 2 diabetes mellitus without complications; K21.9 Gastro-esophageal reflux disease without esophagitis; K58.9 Irritable bowel syndrome, unspecified; F20.9 Schizophrenia, unspecified; E78.5 Hyperlipidemia, unspecified; E03.9 Hypothyroidism, unspecified; E04.1 Nontoxic single thyroid nodule; M19.90 Unspecified osteoarthritis, unspecified site; J30.9 Allergic rhinitis, unspecified; K44.9 Diaphragmatic hernia without obstruction or gangrene; G25.0 Essential tremor; F17.210 Nicotine dependence, cigarettes, uncomplicated; Z79.84 Long term (current) use of oral hypoglycemic drugs; Z85.118 Personal history of other malignant neoplasm of bronchus and lung; Z79.899 Other long term (current) drug therapy

== ENCOUNTER → 2017-02-26 | Outpatient (REF) | payer OTHER ==
[~2017-02-26] MED LIST changes: +ASPI81CH PO; +ATOR80TA59 PO; +BENZ0.5T PO; +CINN500C9 PO; +CIPR-249 PO; +D-50TAB PO; +HYDR-643 PO; +OMEP40CA2 PO; +RANI300T PO; +REXU1TAB4 PO; +RISP1TAB42 PO; +TURM500C3 PO; +VITA10002 PO; +ZINC30CA PO
== END ==
LOC: M SFHCLERA 14:43
PROVIDERS: ATTEND Physician Assistant Medical
DX: S40.862A Insect bite (nonvenomous) of left upper arm, initial encounter (principal); X58.XXXA Exposure to other specified factors, initial encounter; Y92.89 Other specified places as the place of occurrence of the external cause; Y93.89 Activity, other specified; Y99.8 Other external cause status

== ENCOUNTER → 2017-03-16 | Outpatient (CLI) | payer OTHER ==
--- NOTE | 2017-03-16 14:17 | REP ---
Right wrist four views : There is no fracture or dislocation. Mineralization and joint spaces are normal. There are no calcifications or foreign bodies. Impression: Negative right wrist . Signed by Eusebio Becerra MD 03/16/2017 02:08 P
--- NOTE | 2017-03-16 14:42 | REP ---
RIGHT SHOULDER: Four views of the right shoulder are performed. There is no evidence of acute fracture or dislocation. There is slight narrowing of the acromioclavicular joint. Metallic surgical sutures are seen in the right lung. IMPRESSION: No fracture or dislocation. Mild narrowing acromioclavicular joint. Signed by Eusebio Edouard MD 03/16/2017 05:04 P
== END ==
LOC: M LRY 13:31
PROVIDERS: ATTEND Nurse Practitioner Family
DX: M19.011 Primary osteoarthritis, right shoulder (principal); M25.511 Pain in right shoulder; M25.531 Pain in right wrist

== ENCOUNTER → 2017-04-09 | Outpatient (REF) | payer OTHER | LOC: M SFHCLERA 09:44 | PROVIDERS: ATTEND Family Medicine | DX: E07.9 Disorder of thyroid, unspecified (principal); Z53.8 Procedure and treatment not carried out for other reasons ==

== ENCOUNTER → 2017-05-08 | Outpatient (REF) | payer OTHER ==
[2017-05-08 16:48] LABS: FREE T4 0.97 NG/DL (0.76-1.46)
== END ==
LOC: M SFHCLERA 10:50
PROVIDERS: ATTEND Family Medicine
DX: E07.9 Disorder of thyroid, unspecified (principal); L65.9 Nonscarring hair loss, unspecified; E11.9 Type 2 diabetes mellitus without complications

== ENCOUNTER → 2017-05-14 | Outpatient (CLI) | payer OTHER ==
--- NOTE | 2017-05-14 11:49 | REP ---
Clinical: Dysphagia with history of thyroid nodules. Comparison: None available. Technique: Real time ledezma scale and color evaluation using linear high frequency transducer. Findings: The isthmus measures 1.6 mm in width. The right thyroid lobe measures 4.8 x 1.7 x 2.0 cm and includes avascular midpole isoechoic nodule measuring 12 x 16 x 10 mm and upper pole isoechoic avascular nodule measuring 7 x 4 x 12 mm possibly representing colloid cyst. The left lobe measures 3.8 x 1.1 x 1.0 cm and includes 6 x 3 x 3 mm avascular hypoechoic nodule which may represent colloid cyst. Impression: Heterogeneous thyroid gland with nodules as described above (right greater than left) which are otherwise nonspecific. Comparison and correlation may be made if and when prior examinations are available. Signed by James Yeboah MD 05/14/2017 11:40 A
== END ==
LOC: M LRY 08:44
PROVIDERS: ATTEND Family Medicine
DX: E07.9 Disorder of thyroid, unspecified (principal)

== ENCOUNTER → 2017-07-06 | Outpatient (CLI) | payer OTHER ==
[2017-07-06 18:36] LABS: BASO % 0.2 % (0.0-1.0); EOS # 0.1 10^3/uL (0.0-0.50); EOS % 1.6 % (0.0-3.0); HEMATOCRIT 42.4 % (36.0-47.0); HEMOGLOBIN 14.3 g/dl (12.0-16.0); IMMATURE GRANULOCYTE % 0.2 % (0-0); LYMPH # 2.6 10^3/uL (1.5-4.5); LYMPH % 31.5 % (24.0-44.0); MEAN CORPUSCULAR HEMOGLOBIN 29.9 pg (27.0-33.0); MEAN CORPUSCULAR HGB CONC 33.7 g/dl (32.0-36.5); MEAN CORPUSCULAR VOLUME 88.7 fl (80.0-96.0); MONO # 0.7 10^3/uL (0.0-0.8); MONO % 8.5 % (0.0-5.0); NEUTROPHILS # 4.8 10^3/uL (1.8-7.7); PLATELET COUNT, AUTOMATED 210 10^3/uL (150-450); RED BLOOD COUNT 4.78 10^6/uL (4.00-5.40); RED CELL DISTRIBUTION WIDTH 13.2 % (11.5-14.5); WHITE BLOOD COUNT 8.3 10^3/uL (4.0-10.0)
[2017-07-06 19:02] LABS: ALBUMIN 4.3 GM/DL (3.2-5.2); ALBUMIN/GLOBULIN RATIO 1.43 (1.00-1.93); ALKALINE PHOSPHATASE 79 U/L (45-117); ALT/SGPT 62 U/L (12-78); ANION GAP 10 MEQ/L (8-16); AST/SGOT 29 U/L (7-37); BILIRUBIN,TOTAL 0.5 MG/DL (0.2-1.0); BLOOD UREA NITROGEN 9 MG/DL (7-18); CALCIUM LEVEL 9.5 MG/DL (8.8-10.2); CARBON DIOXIDE LEVEL 28 MEQ/L (21-32); CHLORIDE LEVEL 96 MEQ/L (98-107); CREATININE FOR GFR 0.62 MG/DL (0.55-1.02); GLOMERULAR FILTRATION RATE > 60.0 (>45); GLUCOSE, FASTING 104 MG/DL (80-110); POTASSIUM SERUM 4.8 MEQ/L (3.5-5.1); SODIUM LEVEL 134 MEQ/L (136-145); TOTAL PROTEIN 7.3 GM/DL (6.4-8.2)
[2017-07-06 19:03] LABS: PROLACTIN 33.4 NG/ML
[2017-07-06 20:02] LABS: ESTIMATED AVERAGE GLUCOSE 134 MG/DL (60-110); HEMOGLOBIN A1c 6.3 %
== END ==
LOC: M LRY 10:28
DX: F29 Unspecified psychosis not due to a substance or known physiological condition (principal)
CPT/HCPCS: 84146

== ENCOUNTER → 2017-07-23 | Outpatient (REF) | payer OTHER ==
[2017-07-25 08:06] LABS: HSV TYPE I IgG SPECIFIC >62.20 index (0.00-0.90); HSV TYPE II IgG SPECIFIC 6.84 index (0.00-0.90)
== END ==
LOC: M SFHCLERA 12:35
DX: A60.00 Herpesviral infection of urogenital system, unspecified (principal)
CPT/HCPCS: 86696

== ENCOUNTER 2017-09-15 21:20 | Emergency (ER) | payer OTHER ==
[2017-09-16] MEDS: NS 1,000 ML IV (00:26)
[2017-09-16] MEDS: GASTROGRAFIN SOLUTION 30ML PO ×2 (00:45→01:15)
[2017-09-16 01:33] LABS: BASO % 0.2 % (0.0-1.0); EOS # 0.3 10^3/uL (0.0-0.50); EOS % 2.9 % (0.0-3.0); HEMATOCRIT 38.7 % (36.0-47.0); HEMOGLOBIN 13.8 g/dl (12.0-16.0); IMMATURE GRANULOCYTE % 0.4 % (0-3.0); LYMPH # 3.2 10^3/uL (1.5-4.5); LYMPH % 37.7 % (24.0-44.0); MEAN CORPUSCULAR HEMOGLOBIN 30.4 pg (27.0-33.0); MEAN CORPUSCULAR HGB CONC 35.7 g/dl (32.0-36.5); MEAN CORPUSCULAR VOLUME 85.2 fl (80.0-96.0); MONO # 0.7 10^3/uL (0.0-0.8); MONO % 8.7 % (0.0-5.0); NEUTROPHILS # 4.3 10^3/uL (1.8-7.7); NEUTROPHILS % 50.1 % (36.0-66.0); PLATELET COUNT, AUTOMATED 198 10^3/uL (150-450); RED BLOOD COUNT 4.54 10^6/uL (4.00-5.40); WHITE BLOOD COUNT 8.5 10^3/uL (4.0-10.0)
[2017-09-16 01:49] LABS: KETONE, URINE AUTO RFX NEGATIVE (NEGATIVE); LEUKOCYTE ESTERASE UR AUTO RFX 1+ (NEGATIVE); NITRITE, URINE AUTO RFX NEGATIVE (NEGATIVE); RBC, URINE AUTO RFX 1 /HPF (0-3); SPECIFIC GRAVITY UR AUTO RFX 1.004 (1.002-1.035); SQUAM EPITHELIAL CELL UR AURFX 0 /HPF (0-6); WBC, URINE AUTO RFX 4 /HPF (0-3)
[2017-09-16 01:56] LABS: ALBUMIN 4.2 GM/DL (3.2-5.2); ALBUMIN/GLOBULIN RATIO 1.24 (1.00-1.93); ALKALINE PHOSPHATASE 76 U/L (45-117); ALT/SGPT 50 U/L (12-78); ANION GAP 6 MEQ/L (8-16); AST/SGOT 25 U/L (7-37); BILIRUBIN,DIRECT < 0.1 MG/DL (0.0-0.2); BILIRUBIN,TOTAL 0.3 MG/DL (0.2-1.0); BLOOD UREA NITROGEN 13 MG/DL (7-18); CALCIUM LEVEL 9.4 MG/DL (8.8-10.2); CARBON DIOXIDE LEVEL 29 MEQ/L (21-32); CHLORIDE LEVEL 98 MEQ/L (98-107); CREATININE FOR GFR 0.76 MG/DL (0.55-1.30); GLOMERULAR FILTRATION RATE > 60.0 (>45); GLUCOSE, FASTING 115 MG/DL (70-100); LIPASE 154 U/L (73-393); SODIUM LEVEL 133 MEQ/L (136-145); TOTAL PROTEIN 7.6 GM/DL (6.4-8.2)
[2017-09-16] MEDS ORDERED: ISOVUE-370 76% 100ML VIAL (Q9967) As Ordered (02:06)
[2017-09-16] MEDS: METOPROLOL SUCC (TopROL XL) 100MG *XL* TAB PO (04:15)
== END 2017-09-16 06:06 | disposition home or self-care (01) ==
LOC: M ED 21:20
DX: R10.9 Unspecified abdominal pain (principal); J90 Pleural effusion, not elsewhere classified; I10 Essential (primary) hypertension; E11.9 Type 2 diabetes mellitus without complications; K21.9 Gastro-esophageal reflux disease without esophagitis; E78.5 Hyperlipidemia, unspecified; E07.9 Disorder of thyroid, unspecified; F20.9 Schizophrenia, unspecified; R25.1 Tremor, unspecified; Z85.118 Personal history of other malignant neoplasm of bronchus and lung; C85.90 Non-Hodgkin lymphoma, unspecified, unspecified site; Z87.891 Personal history of nicotine dependence; Z79.899 Other long term (current) drug therapy; Z79.82 Long term (current) use of aspirin; Z79.84 Long term (current) use of oral hypoglycemic drugs
CPT/HCPCS: Q9963

== ENCOUNTER → 2017-09-18 | Outpatient (CLI) | payer OTHER | LOC: M RAD 11:01 | DX: R07.9 Chest pain, unspecified (principal) | CPT/HCPCS: 76536 ==

== ENCOUNTER → 2017-10-15 | Outpatient (REF) | payer OTHER ==
[2017-10-15 22:21] LABS: CHLAMYDIA DNA AMPLIFICATION NEGATIVE (NEGATIVE); GC DNA AMPLIFICATION NEGATIVE (NEGATIVE)
== END ==
LOC: M SFHCLERA 16:56
DX: N76.0 Acute vaginitis (principal)

== ENCOUNTER → 2018-01-12 | Outpatient (REF) | payer OTHER, MEDICAID | LOC: M LAB REF 15:27 | DX: E04.1 Nontoxic single thyroid nodule (principal) ==

== ENCOUNTER → 2018-02-18 | Outpatient (REF) | payer OTHER ==
[2018-02-18 16:27] LABS: ANION GAP 9 MEQ/L (8-16); BLOOD UREA NITROGEN 11 MG/DL (7-18); CALCIUM LEVEL 8.9 MG/DL (8.8-10.2); CARBON DIOXIDE LEVEL 27 MEQ/L (21-32); CHLORIDE LEVEL 97 MEQ/L (98-107); CREATININE FOR GFR 0.69 MG/DL (0.55-1.30); GLOMERULAR FILTRATION RATE > 60.0 (>45); GLUCOSE, FASTING 105 MG/DL (70-100); POTASSIUM SERUM 4.7 MEQ/L (3.5-5.1); SODIUM LEVEL 133 MEQ/L (136-145)
[2018-02-18 16:41] LABS: ESTIMATED AVERAGE GLUCOSE 140 MG/DL (60-110); HEMOGLOBIN A1c 6.5 %
[2018-02-18 17:27] LABS: CREATININE, URINE 78.9 MG/DL; MALB URINE SIEMENS 31.9 MG/L; MAU/CREAT RATIO 40.4 MCG/MG (0.0-30.0)
== END ==
LOC: M SFHCLERA 12:10
DX: E11.9 Type 2 diabetes mellitus without complications (principal)

== ENCOUNTER → 2018-04-19 | Outpatient (REF) | payer OTHER ==
[2018-04-19 17:06] LABS: ALBUMIN 4.2 GM/DL (3.2-5.2); ALBUMIN/GLOBULIN RATIO 1.45 (1.00-1.93); ALKALINE PHOSPHATASE 97 U/L (45-117); ALT/SGPT 64 U/L (12-78); AMYLASE 43 U/L (25-115); ANION GAP 8 MEQ/L (8-16); AST/SGOT 27 U/L (7-37); BILIRUBIN,TOTAL 0.3 MG/DL (0.2-1.0); BLOOD UREA NITROGEN 14 MG/DL (7-18); CARBON DIOXIDE LEVEL 28 MEQ/L (21-32); CHLORIDE LEVEL 102 MEQ/L (98-107); CHOLESTEROL LEVEL 125 MG/DL (<200); CHOLESTEROL RISK RATIO 3.125 (<5); CREATININE FOR GFR 0.72 MG/DL (0.55-1.30); GLOMERULAR FILTRATION RATE > 60.0 (>45); GLUCOSE, FASTING 129 MG/DL (70-100); HDL CHOLESTEROL 40 MG/DL (>40); LDL CHOLESTEROL 48 MG/DL (<100); LIPASE 175 U/L (73-393); NON-HDL-C 85 MG/DL; POTASSIUM SERUM 4.3 MEQ/L (3.5-5.1); SODIUM LEVEL 138 MEQ/L (136-145); TOTAL PROTEIN 7.1 GM/DL (6.4-8.2); TRIGLYCERIDES LEVEL 186 MG/DL (<150)
[2018-04-19 17:19] LABS: BASO % 0.2 % (0.0-1.0); EOS # 0.1 10^3/uL (0.0-0.50); EOS % 2.2 % (0.0-3.0); HEMATOCRIT 41.7 % (36.0-47.0); IMMATURE GRANULOCYTE % 0.5 % (0-3.0); LYMPH # 1.9 10^3/uL (1.5-4.5); LYMPH % 30.7 % (24.0-44.0); MEAN CORPUSCULAR HEMOGLOBIN 29.7 pg (27.0-33.0); MEAN CORPUSCULAR HGB CONC 33.6 g/dl (32.0-36.5); MEAN CORPUSCULAR VOLUME 88.3 fl (80.0-96.0); MONO # 0.6 10^3/uL (0.0-0.8); MONO % 9.1 % (0.0-5.0); NEUTROPHILS # 3.6 10^3/uL (1.8-7.7); NEUTROPHILS % 57.3 % (36.0-66.0); PLATELET COUNT, AUTOMATED 197 10^3/uL (150-450); RED BLOOD COUNT 4.72 10^6/uL (4.00-5.40); RED CELL DISTRIBUTION WIDTH 13.4 % (11.5-14.5); WHITE BLOOD COUNT 6.3 10^3/uL (4.0-10.0)
== END ==
LOC: M SFHCLERA 11:30
DX: E11.21 Type 2 diabetes mellitus with diabetic nephropathy (principal); R19.7 Diarrhea, unspecified
CPT/HCPCS: 82150

== ENCOUNTER → 2018-04-21 | Outpatient (REF) | payer OTHER, MEDICAID | LOC: M SFHCLERA 17:20 | DX: R19.7 Diarrhea, unspecified (principal) | CPT/HCPCS: 87507 ==

== ENCOUNTER → 2018-04-24 | Outpatient (REF) | payer OTHER ==
[2018-04-24 19:49] LABS: FREE T4 0.81 NG/DL (0.76-1.46)
== END ==
LOC: M SFHCLERA 09:18
DX: E04.2 Nontoxic multinodular goiter (principal)

== ENCOUNTER → 2018-06-12 | Outpatient (REF) | payer OTHER ==
[~2018-06-12] MED LIST changes: +ARIP1TAB PO; +BUSP15TA47 PO; +CINN500C13 PO; -DOCQ100C PO; +DOCQ100C5 PO; -GEMF600T PO; +GEMF600T5 PO; -OXCA150T PO; +OXCA150T21 PO; +QUET5TAB PO; -TOPR100T PO; +TOPR100T13 PO; -TRAZ-136 PO; +TRAZ-163 PO; +VALA1TAB2 PO
[2018-06-12 20:05] LABS: FREE T4 0.78 NG/DL (0.76-1.46); THYROID STIMULATING HORMONE 2.12 uIU/ML (0.358-3.740)
== END ==
LOC: M SFHCLERA 10:34
PROVIDERS: ATTEND Family Medicine
DX: E03.9 Hypothyroidism, unspecified (principal)

== ENCOUNTER → 2018-06-15 | Outpatient (REF) | payer OTHER ==
[2018-06-15 15:24] LABS: CHLAMYDIA DNA AMPLIFICATION NEGATIVE (NEGATIVE); GC DNA AMPLIFICATION NEGATIVE (NEGATIVE)
== END ==
LOC: M SMT 13:01
PROVIDERS: ATTEND Nurse Practitioner Women's Health
DX: Z11.3 Encounter for screening for infections with a predominantly sexual mode of transmission (principal)

== ENCOUNTER → 2018-08-05 | Outpatient (CLI) | payer OTHER ==
[~2018-08-05] MED LIST changes: +SIMV5TAB12 PO; -SIMV5TAB4 PO
[2018-08-05 17:53] LABS: BASO % 0.1 % (0.0-1.0); EOS # 0.2 10^3/uL (0.0-0.50); EOS % 2.4 % (0.0-3.0); HEMATOCRIT 39.7 % (36.0-47.0); HEMOGLOBIN 13.5 g/dl (12.0-15.5); LYMPH # 2.5 10^3/uL (1.5-4.5); LYMPH % 32.8 % (24.0-44.0); MEAN CORPUSCULAR HEMOGLOBIN 29.7 pg (27.0-33.0); MEAN CORPUSCULAR VOLUME 87.3 fl (80.0-96.0); MONO # 0.6 10^3/uL (0.0-0.8); MONO % 8.5 % (0.0-5.0); NEUTROPHILS # 4.2 10^3/uL (1.8-7.7); NEUTROPHILS % 55.8 % (36.0-66.0); PLATELET COUNT, AUTOMATED 187 10^3/uL (150-450); RED BLOOD COUNT 4.55 10^6/uL (4.00-5.40); WHITE BLOOD COUNT 7.5 10^3/uL (4.0-10.0)
[2018-08-05 18:14] LABS: ALBUMIN 3.9 GM/DL (3.2-5.2); ALT/SGPT 55 U/L (12-78); BILIRUBIN,TOTAL 0.3 MG/DL (0.2-1.0); BLOOD UREA NITROGEN 13 MG/DL (7-18); CALCIUM LEVEL 8.8 MG/DL (8.8-10.2); CARBON DIOXIDE LEVEL 30 MEQ/L (21-32); CHLORIDE LEVEL 96 MEQ/L (98-107); CREATININE FOR GFR 0.67 MG/DL (0.55-1.30); GLOMERULAR FILTRATION RATE > 60.0 (>45); GLUCOSE, FASTING 125 MG/DL (70-100); POTASSIUM SERUM 4.3 MEQ/L (3.5-5.1); SODIUM LEVEL 131 MEQ/L (136-145); TOTAL PROTEIN 6.7 GM/DL (6.4-8.2)
[2018-08-05 18:17] LABS: ESTRADIOL < 19.0 PG/ML; FOLLICLE STIMULATING HORMONE 31.5 mIU/mL; LUTEINIZING HORMONE 7.9 mIU/mL
[2018-08-05 18:24] LABS: HEMOGLOBIN A1c 6.8 %
== END ==
LOC: M SMT 15:03
PROVIDERS: ATTEND Urology Pediatric Urology
DX: N39.8 Other specified disorders of urinary system (principal)

== ENCOUNTER → 2018-08-05 | Outpatient (REF) | payer OTHER ==
[2018-08-05 18:36] LABS: APPEARANCE, URINE CLEAR (CLEAR); BACTERIA, URINE AUTO NEGATIVE (NEGATIVE); BILIRUBIN, URINE AUTO NEGATIVE (NEGATIVE); BLOOD, URINE BLOOD NEGATIVE (NEGATIVE); COLOR, URINE YELLOW (YELLOW); GLUCOSE, URINE (UA) AUTO NEGATIVE (NEGATIVE); KETONE, URINE AUTO NEGATIVE (NEGATIVE); LEUKOCYTE ESTERASE, URINE AUTO TRACE (NEGATIVE); MUCUS, URINE SMALL (NEGATIVE); NITRITE, URINE AUTO NEGATIVE (NEGATIVE); PROTEIN, URINE AUTO NEGATIVE (NEGATIVE); RBC, URINE AUTO 1 /HPF (0-3); SQUAMOUS EPITHELIAL CELL UR AU 1 /HPF (0-6); UROBILINOGEN, URINE AUTO 0.2 mg/dL (0.0-2.0); WBC, URINE AUTO 2 /HPF (0-3)
== END ==
LOC: M SMT 17:15
PROVIDERS: ATTEND Urology Pediatric Urology
DX: N39.8 Other specified disorders of urinary system (principal)

== ENCOUNTER → 2018-09-06 | Outpatient (CLI) | payer OTHER ==
[~2018-09-06] MED LIST changes: +CYSTO-CONRAY II 17.2% 250ML VIAL (Q9958) As Ordered ONE
--- NOTE | 2018-09-07 06:58 | REP ---
Clinical: Bladder/voiding dysfunction. Technique: Axial noncontrast images of the abdomen and pelvis were acquired followed by axial CT cystogram images at rest and during Valsalva. Coronal and sagittal re-formations obtained. Findings: The lung bases are clear. Visualized portions of the heart are normal. Evidence of prior cholecystectomy noted. Liver, spleen, pancreas, bilateral adrenal glands and kidneys/ureters are normal throughout the entire examination. Incidental 1-2 mm nonobstructing bilateral intrarenal calculi identified. There is no evidence for ureteral reflux on images obtained during Valsalva. The enteric system is without obstruction or acute inflammatory process, but there appears to be a 1.2 cm appendicolith at the base of the appendix without evidence for acute appendicitis. Evaluation of the pelvis demonstrates relatively normal and stable appearance to the bladder. Valsalva sequence demonstrates no significant change in bladder contour or appearance and no evidence for ureteral reflux or prolapse. A Morse catheter is identified within the bladder extending through a normal-appearing urethra. The patient is noted to be status post hysterectomy. No ascites. No free air. No evidence for abdominal aortic aneurysm. No intraperitoneal or retroperitoneal adenopathy identified. Impression: 1. Evidence of prior cholecystectomy and hysterectomy. 2. A 1.2 cm appendicolith at the base of the appendix. 3. The bladder appears relatively normal and without change of contour or volume during resting and Valsalva images. There is no evidence for ureteral reflux or prolapse. 4. 1 mm right and 2 mm left nonobstructing intrarenal calculi noted. 5. No significant acute abdominopelvic pathology is appreciated. Electronically Signed by James Yeboah MD 09/07/2018 06:49 A
== END ==
LOC: M RAD 10:08
PROVIDERS: ATTEND Urology Pediatric Urology
DX: N39.8 Other specified disorders of urinary system (principal); R82.90 Unspecified abnormal findings in urine; Z90.49 Acquired absence of other specified parts of digestive tract; Z90.79 Acquired absence of other genital organ(s); K38.1 Appendicular concretions
CPT/HCPCS: 74178; Q9958

== ENCOUNTER → 2018-09-13 | Outpatient (REF) | payer OTHER ==
[~2018-09-13] MED LIST changes: -CYSTO-CONRAY II 17.2% 250ML VIAL (Q9958) As Ordered ONE
[2018-09-13 14:09] LABS: APPEARANCE, URINE CLEAR (CLEAR); BACTERIA, URINE AUTO NEGATIVE (NEGATIVE); BILIRUBIN, URINE AUTO NEGATIVE (NEGATIVE); BLOOD, URINE BLOOD NEGATIVE (NEGATIVE); COLOR, URINE YELLOW (YELLOW); GLUCOSE, URINE (UA) AUTO NEGATIVE (NEGATIVE); KETONE, URINE AUTO NEGATIVE (NEGATIVE); LEUKOCYTE ESTERASE, URINE AUTO 1+ (NEGATIVE); MUCUS, URINE SMALL (NEGATIVE); NITRITE, URINE AUTO NEGATIVE (NEGATIVE); PROTEIN, URINE AUTO NEGATIVE (NEGATIVE); RBC, URINE AUTO 7 /HPF (0-3); SPECIFIC GRAVITY URINE AUTO 1.009 (1.002-1.035); SQUAMOUS EPITHELIAL CELL UR AU 0 /HPF (0-6); UROBILINOGEN, URINE AUTO 0.2 mg/dL (0.0-2.0); WBC, URINE AUTO 25 /HPF (0-3)
== END ==
LOC: M SMT 13:39
PROVIDERS: ATTEND Nurse Practitioner Family
DX: N39.41 Urge incontinence (principal)

== ENCOUNTER → 2018-09-29 | Outpatient (CLI) | payer OTHER ==
[~2018-09-29] MED LIST changes: -ASPI1TAB PO; -ASPI81CH PO; +ASPI81CH49 PO; +ASPI81TA26 PO; -MAGN1TAB25 PO; +MAGN1TAB26 PO; +TOPR100T PO; -TOPR100T13 PO
[2018-09-29 13:23] LABS: ALBUMIN 4.3 GM/DL (3.2-5.2); ALT/SGPT 73 U/L (12-78); BILIRUBIN,TOTAL 0.5 MG/DL (0.2-1.0); BLOOD UREA NITROGEN 8 MG/DL (7-18); CALCIUM LEVEL 9.2 MG/DL (8.8-10.2); CARBON DIOXIDE LEVEL 28 MEQ/L (21-32); CHLORIDE LEVEL 97 MEQ/L (98-107); CHOLESTEROL LEVEL 114 MG/DL (<200); CREATININE FOR GFR 0.73 MG/DL (0.55-1.30); FREE T4 0.97 NG/DL (0.76-1.46); GLOMERULAR FILTRATION RATE > 60.0 (>45); GLUCOSE, FASTING 98 MG/DL (70-100); HDL CHOLESTEROL 44 MG/DL (>40); LDL CHOLESTEROL 39 MG/DL (<100); NON-HDL-C 70 MG/DL; POTASSIUM SERUM 4.8 MEQ/L (3.5-5.1); SODIUM LEVEL 132 MEQ/L (136-145); TRIGLYCERIDES LEVEL 157 MG/DL (<150)
[2018-09-29 14:18] LABS: HEMOGLOBIN A1c 6.4 %
[2018-09-29 15:20] LABS: BASO % 0.3 % (0.0-1.0); EOS # 0.2 10^3/uL (0.0-0.50); EOS % 2.7 % (0.0-3.0); HEMATOCRIT 42.7 % (36.0-47.0); HEMOGLOBIN 14.7 g/dl (12.0-15.5); LYMPH # 2.6 10^3/uL (1.5-4.5); LYMPH % 37.1 % (24.0-44.0); MEAN CORPUSCULAR HEMOGLOBIN 29.7 pg (27.0-33.0); MEAN CORPUSCULAR HGB CONC 34.4 g/dl (32.0-36.5); MEAN CORPUSCULAR VOLUME 86.3 fl (80.0-96.0); MONO # 0.7 10^3/uL (0.0-0.8); MONO % 9.9 % (0.0-5.0); NEUTROPHILS # 3.5 10^3/uL (1.8-7.7); NEUTROPHILS % 49.6 % (36.0-66.0); PLATELET COUNT, AUTOMATED 191 10^3/uL (150-450); RED BLOOD COUNT 4.95 10^6/uL (4.00-5.40); WHITE BLOOD COUNT 7.1 10^3/uL (4.0-10.0)
== END ==
LOC: M SMT 10:56
PROVIDERS: ATTEND Physician Assistant
DX: I10 Essential (primary) hypertension (principal); F20.0 Paranoid schizophrenia; E04.1 Nontoxic single thyroid nodule

== ENCOUNTER → 2018-10-29 | Outpatient (REF) | payer OTHER, MEDICAID ==
[2018-10-29 14:08] LABS: RBC, URINE NONE SEEN /hpf (0-3); SQUAMOUS EPITHELIAL CELL URINE NONE SEEN /hpf (SMALL AMT)
[2018-10-29 14:09] LABS: BACTERIA, URINE NONE SEEN; HYALINE CAST, URINE NONE SEEN /lpf (0-1)
== END ==
LOC: M SMT 12:47
PROVIDERS: ATTEND Specialist
DX: N39.8 Other specified disorders of urinary system (principal)

== ENCOUNTER → 2018-11-29 | Outpatient (CLI) | payer OTHER, MEDICAID ==
[2018-11-29 13:37] LABS: ALBUMIN 4.4 GM/DL (3.2-5.2); ALT/SGPT 80 U/L (12-78); BILIRUBIN,TOTAL 0.4 MG/DL (0.2-1.0); BLOOD UREA NITROGEN 9 MG/DL (7-18); CALCIUM LEVEL 9.8 MG/DL (8.8-10.2); CARBON DIOXIDE LEVEL 29 MEQ/L (21-32); CHLORIDE LEVEL 99 MEQ/L (98-107); CREATININE FOR GFR 0.68 MG/DL (0.55-1.30); GLOMERULAR FILTRATION RATE > 60.0 (>45); GLUCOSE, FASTING 126 MG/DL (70-100); POTASSIUM SERUM 4.3 MEQ/L (3.5-5.1); SODIUM LEVEL 135 MEQ/L (136-145); TOTAL PROTEIN 7.3 GM/DL (6.4-8.2)
[2018-11-29 13:39] LABS: BASO % 0.2 % (0.0-1.0); EOS # 0.2 10^3/uL (0.0-0.50); EOS % 3.2 % (0.0-3.0); HEMATOCRIT 41.3 % (36.0-47.0); LYMPH # 2.1 10^3/uL (1.5-4.5); LYMPH % 31.1 % (24.0-44.0); MEAN CORPUSCULAR HEMOGLOBIN 29.7 pg (27.0-33.0); MEAN CORPUSCULAR HGB CONC 33.9 g/dl (32.0-36.5); MEAN CORPUSCULAR VOLUME 87.5 fl (80.0-96.0); MONO # 0.5 10^3/uL (0.0-0.8); MONO % 7.6 % (0.0-5.0); NEUTROPHILS # 3.8 10^3/uL (1.8-7.7); NEUTROPHILS % 57.6 % (36.0-66.0); PLATELET COUNT, AUTOMATED 192 10^3/uL (150-450); RED BLOOD COUNT 4.72 10^6/uL (4.00-5.40); WHITE BLOOD COUNT 6.6 10^3/uL (4.0-10.0)
[2018-11-29 14:18] LABS: CREATININE, URINE 73.4 MG/DL; MALB URINE SIEMENS 8.4 MG/L; MAU/CREAT RATIO 11.4 MCG/MG (0.0-30.0)
[2018-11-29 15:33] LABS: HEMOGLOBIN A1c 6.4 %
== END ==
LOC: M SMT 09:16
PROVIDERS: ATTEND Family Medicine
DX: I10 Essential (primary) hypertension (principal)

== ENCOUNTER → 2018-12-08 | Outpatient (REF) | payer OTHER, MEDICAID ==
[2018-12-08 19:58] LABS: CHLAMYDIA DNA AMPLIFICATION NEGATIVE (NEGATIVE); GC DNA AMPLIFICATION NEGATIVE (NEGATIVE)
== END ==
LOC: M LAB REF 17:07
PROVIDERS: ATTEND Family Medicine
DX: R30.0 Dysuria (principal)

== ENCOUNTER → 2019-01-11 | Outpatient (REF) | payer OTHER, MEDICAID ==
[~2019-01-11] MED LIST changes: -BENZ0.5T PO; +BENZ0.5T23 PO; +CYAN100049 PO; +LOSA50TA88 PO; -OMEP40CA2 PO; +OMEP40CA97 PO; -TRAZ-163 PO; +TRAZ-257 PO; +TRUL3TAB PO; -VALA1TAB2 PO; +VALA1TAB64 PO; -VITA10002 PO
== END ==
LOC: M LAB REF 17:17
PROVIDERS: ATTEND Physician Assistant
DX: R30.0 Dysuria (principal)

== ENCOUNTER → 2019-01-13 | Outpatient (CLI) | payer OTHER, MEDICAID ==
[~2019-01-13] MED LIST changes: +OMEP40CA2 PO; -OMEP40CA97 PO; +TRAZ-163 PO; -TRAZ-257 PO; +VALA1TAB2 PO; -VALA1TAB64 PO
--- NOTE | 2019-01-13 14:08 | REP ---
Abdomen series: Four views. History: Constipation. Comparison study October 05, 2017. Findings: There are post thoracotomy changes in the right upper lobe region. A dextroconvex thoracic curvature is seen. There is some linear fibrosis in the left base. The heart is not enlarged. Lung ross are otherwise clear. No free subdiaphragmatic air is seen. No infiltrate is seen. Supine and erect views of the abdomen demonstrate gaseous distension of the colon proximal to the level of mid descending. There is no observable stool in the sigmoid or rectosigmoid colon. There are air-fluid levels in the colon on the upright film. There are clips in right upper abdomen. No mass or organomegaly is visualized. There is a levoconvex curve of the lumbar spine. Impression: Distension of the proximal colon without evidence of fecal impaction or distal colonic stool. This raises the question of left colonic obstruction. Versus enteritis or ileus. Electronically Signed by Yobany Payne MD 01/13/2019 07:22 P
== END ==
LOC: M SMT 10:11
PROVIDERS: ATTEND Physician Assistant
DX: K59.00 Constipation, unspecified (principal)

== ENCOUNTER → 2019-01-13 | Outpatient (CLI) | payer OTHER, MEDICAID ==
[2019-01-13 13:24] LABS: FREE T4 0.78 NG/DL (0.76-1.46); THYROID STIMULATING HORMONE 4.2 uIU/ML (0.358-3.740)
== END ==
LOC: M SMT 10:15
PROVIDERS: ATTEND Family Medicine
DX: R94.6 Abnormal results of thyroid function studies (principal)

== ENCOUNTER 2019-01-14 10:02 | Emergency (ER) | payer MEDICAID, OTHER ==
[~2019-01-14] VITALS: Ht 177.8 cm; Wt 92.7 kg
[~2019-01-14 10:02] MED LIST changes: -LOSA50TA88 PO; -TRUL3TAB PO
[2019-01-14 10:50] LABS: BASO % 0.2 % (0.0-1.0); EOS # 0.2 10^3/uL (0.0-0.50); EOS % 2.7 % (0.0-3.0); HEMATOCRIT 39.2 % (36.0-47.0); HEMOGLOBIN 13.6 g/dl (12.0-15.5); LYMPH # 1.8 10^3/uL (1.5-4.5); LYMPH % 30.7 % (24.0-44.0); MEAN CORPUSCULAR HEMOGLOBIN 30.6 pg (27.0-33.0); MEAN CORPUSCULAR HGB CONC 34.7 g/dl (32.0-36.5); MEAN CORPUSCULAR VOLUME 88.3 fl (80.0-96.0); MONO # 0.5 10^3/uL (0.0-0.8); NEUTROPHILS # 3.4 10^3/uL (1.8-7.7); NEUTROPHILS % 58.1 % (36.0-66.0); PLATELET COUNT, AUTOMATED 164 10^3/uL (150-450); RED BLOOD COUNT 4.44 10^6/uL (4.00-5.40); WHITE BLOOD COUNT 5.8 10^3/uL (4.0-10.0)
[2019-01-14] MEDS ORDERED: LOSA50TA88 PO (11:11)
[2019-01-14] MEDS ORDERED: TRUL3TAB PO (11:11)
[2019-01-14 11:17] LABS: BLOOD UREA NITROGEN 9 MG/DL (7-18); CREATININE FOR GFR 0.64 MG/DL (0.55-1.30); GLOMERULAR FILTRATION RATE > 60.0 (>45); GLUCOSE, FASTING 118 MG/DL (70-100); SODIUM LEVEL 137 MEQ/L (136-145)
[2019-01-14 11:18] LABS: ALBUMIN 3.8 GM/DL (3.2-5.2); ALT/SGPT 86 U/L (12-78); BILIRUBIN,DIRECT 0.1 MG/DL (0.0-0.2); BILIRUBIN,TOTAL 0.3 MG/DL (0.2-1.0); CALCIUM LEVEL 8.9 MG/DL (8.8-10.2); CARBON DIOXIDE LEVEL 28 MEQ/L (21-32); CHLORIDE LEVEL 99 MEQ/L (98-107); CK-MB VALUE MASS 3.1 NG/ML (<3.6); CPK CREATINE PHOSPHOKINASE 133 U/L (26-192); LIPASE 129 U/L (73-393); MB/CK RELATIVE INDEX 2.33 (< OR =4); POTASSIUM SERUM 3.8 MEQ/L (3.5-5.1); TOTAL PROTEIN 6.7 GM/DL (6.4-8.2); TROPONIN I < 0.02 NG/ML (< 0.10)
[2019-01-14] MEDS: GASTROGRAFIN SOLUTION 30ML PO SCH ×2 (11:33→12:09)
[2019-01-14] MEDS ORDERED: ISOVUE-370 76% 100ML VIAL (Q9967) As Ordered ONE (12:17)
--- NOTE | 2019-01-14 13:31 | REP ---
CT ABDOMEN AND PELVIS WITH ORAL AND IV CONTRAST: TECHNIQUE: Axial contrast enhanced images from the lung bases to the pubic symphysis using 100 mL Isovue 370 intravenous contrast material with multiplanar reformations. Visualized lung bases demonstrate mild fibroatelectatic change. There is diffuse fatty infiltration of the liver. The patient has had a prior cholecystectomy. There is no evidence of biliary dilatation. Spleen, adrenals, pancreas, and kidneys appear unremarkable. There is no hydronephrosis bilaterally. There is no abdominal aortic aneurysm. There is no adenopathy. There is no free air or free fluid. There is no evidence of appendicitis. No bowel thickening is seen. There is no evidence of bowel obstruction. A portion of the sigmoid colon is relatively collapsed. Urinary bladder is moderately distended with no definite abnormality. The patient has had a prior hysterectomy. No anterior abdominal wall defect is seen. There are degenerative changes of the spine. IMPRESSION: No acute abnormalities. No free air or free fluid. No evidence of appendicitis. No evidence of bowel obstruction. Electronically Signed by Eusebio Edouard MD 01/16/2019 07:26 P
[2019-01-14] MEDS ORDERED: LABETALOL HCL 100 MG/20 ML VIAL IV STA (14:43)
[2019-01-14 14:58] VITALS: BP 224/99
[2019-01-14 17:58] VITALS: BP 150/80
--- NOTE | 2019-01-14 21:02 | ECGEPIP ---
[facility] - ED Test Date: 2019-01-14 Pat Name: LISA LEGGETT Department: Room: - Gender: Female Quality Worker: : 1955 Requested By: Jacqueline Butler Order Number: [id number] Reading MD: Theodore Luna Measurements Intervals [place] Rate: 77 P: 37 MT: 202 QRS: QRSD: 97 T: QT: 361 QTc: 409 Interpretive Statements SINUS RHYTHM INCOMPLETE RIGHT BUNDLE BRANCH BLOCK MODERATE VOLTAGE CRITERIA FOR LVH, CONSIDER NORMAL VARIANT SIMILAR TO 01/22/17 Electronically Signed on 01-14-2019 21:02:41 EDT by Theodore Luna
== END 2019-01-14 17:48 | disposition home or self-care (01) ==
LOC: M ED 10:02
DX: R10.9 Unspecified abdominal pain (principal); R19.7 Diarrhea, unspecified; I45.19 Other right bundle-branch block; E11.9 Type 2 diabetes mellitus without complications; I10 Essential (primary) hypertension; J44.9 Chronic obstructive pulmonary disease, unspecified; G25.0 Essential tremor; E78.5 Hyperlipidemia, unspecified; K22.70 Barrett's esophagus without dysplasia; F20.9 Schizophrenia, unspecified; K44.9 Diaphragmatic hernia without obstruction or gangrene; Z79.899 Other long term (current) drug therapy; Z79.84 Long term (current) use of oral hypoglycemic drugs; Z79.82 Long term (current) use of aspirin; Z87.891 Personal history of nicotine dependence
CPT/HCPCS: 74177; 80048; 80076; 82550; 82553; 83690; 85025; 93005; 93041; 96374; 99285; Q9963; Q9967

== ENCOUNTER → 2019-04-11 | Outpatient (REF) | payer OTHER, MEDICAID ==
[~2019-04-11] MED LIST changes: +LOSA50TA88 PO; +TRUL3TAB PO
== END ==
LOC: M LAB REF 17:12
PROVIDERS: ATTEND Physician Assistant
DX: J02.9 Acute pharyngitis, unspecified (principal)

== ENCOUNTER → 2019-04-21 | Outpatient (CLI) | payer OTHER, MEDICAID ==
[~2019-04-21] MED LIST changes: -OMEP40CA2 PO; +OMEP40CA97 PO
[2019-04-21 13:45] LABS: ALBUMIN 4.1 GM/DL (3.2-5.2); ALT/SGPT 73 U/L (12-78); BILIRUBIN,TOTAL 0.4 MG/DL (0.2-1.0); BLOOD UREA NITROGEN 9 MG/DL (7-18); CALCIUM LEVEL 9.1 MG/DL (8.8-10.2); CARBON DIOXIDE LEVEL 28 MEQ/L (21-32); CHLORIDE LEVEL 97 MEQ/L (98-107); CREATININE FOR GFR 0.72 MG/DL (0.55-1.30); GLOMERULAR FILTRATION RATE > 60.0 (>45); GLUCOSE, FASTING 112 MG/DL (70-100); SODIUM LEVEL 132 MEQ/L (136-145); TOTAL PROTEIN 7.1 GM/DL (6.4-8.2)
[2019-04-21 14:14] LABS: HEMOGLOBIN A1c 6.6 %
== END ==
LOC: M SMT 09:18
PROVIDERS: ATTEND Physician Assistant
DX: E11.9 Type 2 diabetes mellitus without complications (principal)

== ENCOUNTER → 2019-05-17 | Outpatient (CLI) | payer OTHER, MEDICAID ==
[2019-05-17 11:07] LABS: BASO % 0.2 % (0.0-1.0); EOS # 0.1 10^3/uL (0.0-0.5); EOS % 2.3 % (0.0-3.0); HEMATOCRIT 42.1 % (36.0-47.0); HEMOGLOBIN 14.4 g/dl (12.0-15.5); LYMPH # 1.9 10^3/uL (1.5-5.0); MEAN CORPUSCULAR HEMOGLOBIN 30.2 pg (27.0-33.0); MEAN CORPUSCULAR HGB CONC 34.2 g/dl (32.0-36.5); MEAN CORPUSCULAR VOLUME 88.3 fl (80.0-96.0); MONO # 0.6 10^3/uL (0.0-0.8); MONO % 9.3 % (0.0-5.0); NEUTROPHILS # 3.4 10^3/uL (1.5-8.5); NEUTROPHILS % 55.7 % (36.0-66.0); PLATELET COUNT, AUTOMATED 189 10^3/uL (150-450); RED BLOOD COUNT 4.77 10^6/uL (4.00-5.40)
[2019-05-17 11:13] LABS: ALT/SGPT 71 U/L (12-78); BILIRUBIN,TOTAL 0.3 MG/DL (0.2-1.0); BLOOD UREA NITROGEN 10 MG/DL (7-18); CALCIUM LEVEL 9.7 MG/DL (8.8-10.2); CARBON DIOXIDE LEVEL 31 MEQ/L (21-32); CHLORIDE LEVEL 102 MEQ/L (98-107); GLOMERULAR FILTRATION RATE > 60.0 (>45); GLUCOSE, FASTING 130 MG/DL (70-100); POTASSIUM SERUM 4.3 MEQ/L (3.5-5.1); SODIUM LEVEL 137 MEQ/L (136-145); TOTAL PROTEIN 7.5 GM/DL (6.4-8.2)
[2019-05-17 11:39] LABS: HEMOGLOBIN A1c 6.3 %
[2019-05-17 11:53] LABS: CREATININE, URINE 39.9 MG/DL; MAU/CREAT RATIO 45.1 MCG/MG (0.0-30.0)
== END ==
LOC: M SMT 08:39
PROVIDERS: ATTEND Family Medicine
DX: E11.9 Type 2 diabetes mellitus without complications (principal)

== ENCOUNTER → 2019-10-14 | Outpatient (REF) | payer OTHER, MEDICAID ==
[~2019-10-14] MED LIST changes: -TRAZ-163 PO; +TRAZ-257 PO; -VALA1TAB2 PO; +VALA1TAB5 PO
[2019-10-14 17:08] LABS: ALBUMIN 3.9 GM/DL (3.2-5.2); ALT/SGPT 46 U/L (12-78); BILIRUBIN,TOTAL 0.4 MG/DL (0.2-1.0); BLOOD UREA NITROGEN 11 MG/DL (7-18); CALCIUM LEVEL 9.4 MG/DL (8.8-10.2); CARBON DIOXIDE LEVEL 31 MEQ/L (21-32); CHLORIDE LEVEL 98 MEQ/L (98-107); CHOLESTEROL LEVEL 132 MG/DL (<200); CHOLESTEROL RISK RATIO 3.473 (<5); CREATININE FOR GFR 0.74 MG/DL (0.55-1.30); GLOMERULAR FILTRATION RATE > 60.0 (>45); GLUCOSE, FASTING 129 MG/DL (70-100); HDL CHOLESTEROL 38 MG/DL (>40); LDL CHOLESTEROL 65 MG/DL (<100); NON-HDL-C 94 MG/DL; POTASSIUM SERUM 4.1 MEQ/L (3.5-5.1); SODIUM LEVEL 135 MEQ/L (136-145); TOTAL PROTEIN 7.4 GM/DL (6.4-8.2); TRIGLYCERIDES LEVEL 146 MG/DL (<150)
[2019-10-14 17:34] LABS: MALB URINE SIEMENS 38.2 MG/L; MAU/CREAT RATIO 31.5 MCG/MG (0.0-30.0)
== END ==
LOC: M SFHCLERA 11:46
PROVIDERS: ATTEND Family Medicine
DX: E11.9 Type 2 diabetes mellitus without complications (principal)

== ENCOUNTER → 2019-11-23 | Outpatient (CLI) | payer OTHER ==
[~2019-11-23] MED LIST changes: +GASTROGRAFIN SOLUTION 30ML (Q9963) As Ordered ONE; +ISOVUE-370 76% 100ML VIAL As Ordered ONE
--- NOTE | 2019-11-24 04:46 | REP ---
Clinical: Abdominal pain and bloating. Technique: Axial contrast enhanced images from the lung bases to the pubic symphysis using oral (per protocol) and 100 ml Isovue 370 intravenous contrast material with coronal and sagittal re-formations. Comparison: 01/14/2019. Findings: Diffuse fatty infiltration to the liver noted. Spleen, pancreas, bilateral adrenal glands and kidneys are normal. Evidence of prior cholecystectomy. The enteric system suggests moderate fecal stasis without obstruction or acute inflammatory process. Normal terminal ileum, cecum and appendix identified in the right lower quadrant. Pelvis demonstrates normal bladder and evidence of prior hysterectomy. No ascites. No free air. No adenopathy. Abdominal aorta without aneurysm or dissection. Musculoskeletal structures demonstrate degenerative changes without acute focal abnormality. Lung bases demonstrate chronic-appearing changes. Visualized heart and pericardium grossly normal. Impression: 1. Hepatic steatosis. 2. Moderate fecal stasis with possible constipation. Electronically Signed by James Yeboah MD 11/24/2019 04:37 A
== END ==
LOC: M RAD 12:02
PROVIDERS: ATTEND Family Medicine
DX: K59.00 Constipation, unspecified (principal); K76.0 Fatty (change of) liver, not elsewhere classified
CPT/HCPCS: 74177; Q9963; Q9967

== ENCOUNTER → 2019-12-21 | Outpatient (CLI) | payer OTHER ==
[~2019-12-21] MED LIST changes: -GASTROGRAFIN SOLUTION 30ML (Q9963) As Ordered ONE; -ISOVUE-370 76% 100ML VIAL As Ordered ONE
[2019-12-21 14:32] LABS: ALBUMIN 3.9 GM/DL (3.2-5.2); ALT/SGPT 67 U/L (12-78); BILIRUBIN,TOTAL 0.5 MG/DL (0.2-1.0); BLOOD UREA NITROGEN 9 MG/DL (7-18); CALCIUM LEVEL 9.2 MG/DL (8.8-10.2); CARBON DIOXIDE LEVEL 29 MEQ/L (21-32); CHLORIDE LEVEL 106 MEQ/L (98-107); CREATININE FOR GFR 0.71 MG/DL (0.55-1.30); GLOMERULAR FILTRATION RATE > 60.0 (>45); GLUCOSE, FASTING 132 MG/DL (70-100); POTASSIUM SERUM 3.9 MEQ/L (3.5-5.1); SODIUM LEVEL 142 MEQ/L (136-145); TOTAL PROTEIN 7.3 GM/DL (6.4-8.2)
== END ==
LOC: M PLALAB 09:48
PROVIDERS: ATTEND Family Medicine
DX: M79.89 Other specified soft tissue disorders (principal)

== ENCOUNTER → 2020-02-14 | Outpatient (REF) | payer OTHER ==
[2020-04-02 21:58] LABS: BASO % 0.2 % (0.0-1.0); EOS # 0.2 10^3/uL (0.0-0.5); EOS % 3.6 % (0.0-3.0); HEMATOCRIT 44.3 % (36.0-47.0); LYMPH # 2.4 10^3/uL (1.5-5.0); LYMPH % 36.7 % (24.0-44.0); MEAN CORPUSCULAR HEMOGLOBIN 29.8 pg (27.0-33.0); MEAN CORPUSCULAR HGB CONC 33.9 g/dl (32.0-36.5); MEAN CORPUSCULAR VOLUME 88.1 fl (80.0-96.0); MONO # 0.6 10^3/uL (0.0-0.8); MONO % 9.3 % (0.0-5.0); NEUTROPHILS # 3.2 10^3/uL (1.5-8.5); NEUTROPHILS % 49.7 % (36.0-66.0); PLATELET COUNT, AUTOMATED 185 10^3/uL (150-450); RED BLOOD COUNT 5.03 10^6/uL (4.00-5.40); WHITE BLOOD COUNT 6.5 10^3/uL (4.0-10.0)
[2020-04-09 04:38] LABS: ALBUMIN 4.1 GM/DL (3.2-5.2); ALT/SGPT 90 U/L (12-78); BILIRUBIN,TOTAL 0.3 MG/DL (0.2-1.0); BLOOD UREA NITROGEN 8 MG/DL (7-18); CALCIUM LEVEL 9.4 MG/DL (8.8-10.2); CARBON DIOXIDE LEVEL 27 MEQ/L (21-32); CHLORIDE LEVEL 105 MEQ/L (98-107); CREATININE FOR GFR 0.78 MG/DL (0.55-1.30); FREE T4 1.02 NG/DL (0.76-1.46); GLOMERULAR FILTRATION RATE > 60.0 (>45); GLUCOSE, FASTING 119 MG/DL (70-100); HEMOGLOBIN A1c 6.9 %; SODIUM LEVEL 140 MEQ/L (136-145); TOTAL PROTEIN 7.5 GM/DL (6.4-8.2)
== END ==
LOC: M SFHCLERA 11:23
PROVIDERS: ATTEND Family Medicine
DX: R06.9 Unspecified abnormalities of breathing (principal)

== ENCOUNTER → 2020-04-21 | Outpatient (CLI) | payer OTHER ==
--- NOTE | 2020-04-21 14:19 | REP ---
INDICATION: PAIN COMPARISON: None. TECHNIQUE: AP and frog-lateral views of the right hip FINDINGS: Generalized age-related changes include subtle increased sclerosis to the acetabulum with minimal joint space narrowing. No further overt osteoarthritic or significant degenerative changes are appreciated. No evidence for acute or healed injury. Surrounding soft tissues are normal. IMPRESSION: Mild generalized age-related changes. <Electronically signed by James Yeboah > 04/21/20 [id number]
== END ==
LOC: M WUC 13:27
PROVIDERS: ATTEND Nurse Practitioner Family
DX: M16.11 Unilateral primary osteoarthritis, right hip (principal)

== ENCOUNTER → 2020-06-25 | Outpatient (CLI) | payer OTHER ==
[~2020-06-25] MED LIST changes: +CALC-362 PO; -CHEW500C2 PO
--- NOTE | 2020-06-25 14:22 | REP ---
INDICATION: THYROID NODULE COMPARISON: 09/18/2017 TECHNIQUE: Edouard scale and color evaluation of the thyroid gland using the linear high frequency transducer. FINDINGS: The thyroid gland is relatively normal in contour and overall parenchymal echotexture. Right lobe measures 4.7 x 1.9 x 1.5 cm and again demonstrates few scattered small cysts measuring between 2 and 4 mm as well as isoechoic vascular nodule in the midpole measuring 17.4 x 10.6 x 15.6 mm (previously measuring 17.9 X 10.8 X 11.2 mm). Left lobe measures 4.0 x 0.9 x 1.0 cm and demonstrates similar small scattered cysts measuring between 2 and 4 mm without further nodule or suspicious abnormality. IMPRESSION: Small nonspecific bilateral cysts measuring between 2-4 mm. Stable vascular isodense indeterminate nodule in the right midpole. <Electronically signed by James Yeboah > 06/25/20 1008
== END ==
LOC: M RAD 13:40
PROVIDERS: ATTEND Family Medicine
DX: E04.1 Nontoxic single thyroid nodule (principal)

== ENCOUNTER → 2020-09-20 | Outpatient (CLI) | payer OTHER ==
[~2020-09-20] MED LIST changes: +PLEC3TAB PO; +QUET50TA3 PO; -QUET5TAB PO; -TRUL3TAB PO
[2020-09-20 16:14] LABS: BASO % 0.3 % (0.0-1.0); EOS # 0.2 10^3/uL (0.0-0.5); EOS % 2.2 % (0.0-3.0); HEMATOCRIT 50.4 % (36.0-47.0); HEMOGLOBIN 16.1 g/dl (12.0-15.5); LYMPH # 2.6 10^3/uL (1.5-5.0); LYMPH % 34.1 % (24.0-44.0); MEAN CORPUSCULAR HEMOGLOBIN 28.6 pg (27.0-33.0); MEAN CORPUSCULAR HGB CONC 31.9 g/dl (32.0-36.5); MEAN CORPUSCULAR VOLUME 89.5 fl (80.0-96.0); MONO # 0.7 10^3/uL (0.0-0.8); MONO % 8.6 % (2.0-8.0); NEUTROPHILS # 4.1 10^3/uL (1.5-8.5); NEUTROPHILS % 54.5 % (36.0-66.0); PLATELET COUNT, AUTOMATED 172 10^3/uL (150-450); RED BLOOD COUNT 5.63 10^6/uL (4.00-5.40); WHITE BLOOD COUNT 7.6 10^3/uL (4.0-10.0)
[2020-09-20 16:32] LABS: HEMOGLOBIN A1c 6.8 %
[2020-09-20 16:50] LABS: ALBUMIN 4.3 GM/DL (3.2-5.2); ALT/SGPT 43 U/L (12-78); BILIRUBIN,TOTAL 0.5 MG/DL (0.2-1.0); BLOOD UREA NITROGEN 16 MG/DL (7-18); CALCIUM LEVEL 9.3 MG/DL (8.8-10.2); CARBON DIOXIDE LEVEL 30 MEQ/L (21-32); CHLORIDE LEVEL 101 MEQ/L (98-107); CHOLESTEROL LEVEL 189 MG/DL (<200); CHOLESTEROL RISK RATIO 4.846 (<5); GLOMERULAR FILTRATION RATE > 60.0 (>45); GLUCOSE, FASTING 115 MG/DL (70-100); HDL CHOLESTEROL 39 MG/DL (>40); LDL CHOLESTEROL 84 MG/DL (<100); NON-HDL-C 150 MG/DL; POTASSIUM SERUM 3.5 MEQ/L (3.5-5.1); SODIUM LEVEL 138 MEQ/L (136-145); TOTAL PROTEIN 7.8 GM/DL (6.4-8.2); TRIGLYCERIDES LEVEL 329 MG/DL (<150)
[2020-09-20 16:53] LABS: TOTAL 25(OH) VITAMIN D 32.1 NG/ML (30.0-100.0); VITAMIN B12 LEVEL 868 PG/ML (247-911)
== END ==
LOC: M WUC 10:37
PROVIDERS: ATTEND Nurse Practitioner Psychiatric/Mental Health
DX: F25.9 Schizoaffective disorder, unspecified (principal)
CPT/HCPCS: 36415; 80053; 80061; 80183; 82306; 82607; 83036; 84443; 85025; G0480

== ENCOUNTER → 2020-10-04 | Outpatient (CLI) | payer OTHER ==
[~2020-10-04] MED LIST changes: +E-Z-GAS II EFFERVESCENT PACKET (SODIUM BICARB./CITRIC ACID/SIMETHICONE) As Ordered ONE; +E-Z-HD 98% w/w 340GM SUSP BTL As Ordered ONE; +E-Z-PAQUE 96% w/w SUSP 176GM BTL As Ordered ONE
--- NOTE | 2020-10-04 17:06 | REP ---
INDICATION: DYSPHAGIA. COMPARISON: None TECHNIQUE: This procedure was performed by [facility], under the direct supervision of Dr. Edouard. Images were reviewed with Dr. Edouard prior to dictation. Liquid barium and gas producing crystals were given in the erect position, as well as liquid barium in the prone oblique position in order to perform a double contrast esophagram examination. FINDINGS: A single view PA chest x-ray is submitted as a pier hand film. The superior mediastinal structures are midline. The heart size is within normal limits. The lungs are clear. Mild chronic dextroconvex scoliosis is again appreciated. The oral and pharyngeal stages of deglutition were unremarkable. However tertiary waves were visualized throughout the exam. Esophageal transport is prompt and efficient and there is no evidence of esophagitis, stricture, or mucosal ring. There is no evidence of a hiatal hernia. There was no gastroesophageal reflux noted . IMPRESSION: Tertiary waves were visualized during the exam, otherwise unremarkable esophagram. 0.3 minutes of fluoroscopy time was utilized for this procedure. Some fluoroscopic images are performed with last image hold technology. These images require no additional radiation. <Electronically signed by [facility] > 10/04/20 1530 <Electronically signed by Eusebio Edouard > 10/04/20 1702
== END ==
LOC: M RAD 10:13
PROVIDERS: ATTEND Otolaryngology
DX: K22.4 Dyskinesia of esophagus (principal)

== ENCOUNTER → 2020-11-30 | Outpatient (CLI) | payer OTHER ==
[~2020-11-30] MED LIST changes: -E-Z-GAS II EFFERVESCENT PACKET (SODIUM BICARB./CITRIC ACID/SIMETHICONE) As Ordered ONE; -E-Z-HD 98% w/w 340GM SUSP BTL As Ordered ONE; -E-Z-PAQUE 96% w/w SUSP 176GM BTL As Ordered ONE
--- NOTE | 2020-12-01 01:05 | ECGEPIP ---
[facility] Test Date: 2020-11-30 Pat Name: LISA LEGGETT Department: Room: - Gender: Female Reservationist: CANDE : 1955 Requested By: Aleksandra Ricks Order Number: [id number] Reading MD: Kentrell Saldivar Measurements Intervals [place] Rate: 70 P: 53 DC: 198 QRS: 18 QRSD: 84 T: 2 QT: 380 QTc: 410 Interpretive Statements Normal sinus rhythm RSR' IN V1 OR V2, RIGHT VCD OR RVH T wave abnormality, consider anterior ischemia Last tracing on 01/14/19. No remarkable changes Electronically Signed on 12-01-2020 1:05:13 EDT by Kentrell Saldivar
== END ==
LOC: M EKG 12:03
PROVIDERS: ATTEND Nurse Practitioner Psychiatric/Mental Health
DX: F31.9 Bipolar disorder, unspecified (principal)

== ENCOUNTER → 2021-03-26 | Outpatient (CLI) | payer OTHER ==
[~2021-03-26] MED LIST changes: +ARIP10TA32 PO; -ARIP1TAB PO; +OMEP40CA4 PO; -OMEP40CA97 PO; -QUET50TA3 PO; +QUET50TA4 PO
--- NOTE | 2021-03-26 13:03 | REP ---
INDICATION: ANKYLOSING SPONDYLITIS OF THORACOLUMBAR REGION. COMPARISON: None TECHNIQUE: AP and lateral FINDINGS: There is moderate disc space narrowing L2-3 through L5-S1. There is anterior lipping at every level. There is partial marginal osteophytosis at all levels on the right and bilaterally at L3-4 and L4-5. Vertebral body height is within normal limits. Degenerative facet joint changes are suspected bilaterally at every level. IMPRESSION: Chronic changes seen on this limited exam as described above. There is no evidence anterior longitudinal ligamentous calcification or significant syndesmophyte formation. <Electronically signed by Scar Michelle > 03/26/21 [id number]
== END ==
LOC: M RAD 11:59
PROVIDERS: ATTEND Student in an Organized Health Care Education/Training Program
DX: M54.5 Low back pain (principal)

== ENCOUNTER → 2021-12-02 | Outpatient (REF) | payer OTHER, MEDICAID ==
[~2021-12-02] MED LIST changes: -DICY20TA11 PO; +DICY20TA20 PO; +LOSA50TA28 PO; -LOSA50TA88 PO
== END ==
LOC: M SFHCDERM 14:56
PROVIDERS: ATTEND Physician Assistant
DX: C44.301 Unspecified malignant neoplasm of skin of nose (principal)

== ENCOUNTER → 2022-01-15 | Outpatient (REF) | payer MEDICAID, OTHER | LOC: M SFHCDERM 17:04 | PROVIDERS: ATTEND Dermatology | DX: D22.71 Melanocytic nevi of right lower limb, including hip (principal) ==

== ENCOUNTER → 2022-04-25 | Outpatient (REF) | payer OTHER | LOC: M SFHCDERM 14:36 | PROVIDERS: ATTEND Dermatology | DX: Z48.02 Encounter for removal of sutures (principal) ==

== ENCOUNTER → 2022-04-29 | Outpatient (REF) | payer MEDICARE, MEDICAID | LOC: M SFHCDERM 16:57 | PROVIDERS: ATTEND Dermatology | DX: Z48.02 Encounter for removal of sutures (principal) ==

== ENCOUNTER → 2023-02-16 | Outpatient (CLI) | payer MEDICARE, MEDICAID ==
[~2023-02-16] MED LIST changes: +BENZ0.5T2 PO; -BENZ0.5T23 PO; +MONT-5 PO; -SING10TA32 PO
== END ==
LOC: M RAD 11:34
PROVIDERS: ATTEND Family Medicine
DX: M54.50 Low back pain, unspecified (principal)

== ENCOUNTER → 2023-03-12 | Outpatient (CLI) | payer MEDICARE, MEDICAID | LOC: M WHC 11:14 | PROVIDERS: ATTEND Family Medicine | DX: Z12.31 Encounter for screening mammogram for malignant neoplasm of breast (principal) ==

== ENCOUNTER → 2023-03-12 | Outpatient (CLI) | payer MEDICARE, MEDICAID ==
[~2023-03-12] MED LIST changes: +ISOVUE-370 76% 100ML VIAL As Ordered ONE
== END ==
LOC: M RAD 14:17
PROVIDERS: ATTEND Family Medicine
DX: R22.2 Localized swelling, mass and lump, trunk (principal); Z12.31 Encounter for screening mammogram for malignant neoplasm of breast
CPT/HCPCS: 71260; 77063; 77067; Q9967

== ENCOUNTER → 2024-10-10 | Outpatient (REF) | payer MEDICARE, MEDICAID ==
[~2024-10-10] MED LIST changes: -ARIP10TA32 PO; +ARIP10TA63 PO; -ISOVUE-370 76% 100ML VIAL As Ordered ONE
[2024-10-10 13:07] LABS: CREATININE, URINE 36.7 MG/DL; MALB URINE SIEMENS < 3.0 MG/L
[2024-10-10 14:02] LABS: BASO % 0.2 % (0.0-1.0); EOS # 0.2 10^3/uL (0.0-0.5); EOS % 1.9 % (0.0-3.0); HEMATOCRIT 48.3 % (36.0-47.0); HEMOGLOBIN 15.9 g/dl (12.0-15.5); LYMPH # 2.4 10^3/uL (1.5-5.0); MEAN CORPUSCULAR HEMOGLOBIN 29.8 pg (27.0-33.0); MEAN CORPUSCULAR HGB CONC 32.9 g/dl (32.0-36.5); MEAN CORPUSCULAR VOLUME 90.6 fl (80.0-96.0); MONO # 0.6 10^3/uL (0.0-0.8); MONO % 7.6 % (2.0-8.0); NEUTROPHILS # 4.8 10^3/uL (1.5-8.5); NEUTROPHILS % 59.9 % (36.0-66.0); PLATELET COUNT, AUTOMATED 188 10^3/uL (150-450); RED BLOOD COUNT 5.33 10^6/uL (4.00-5.40); WHITE BLOOD COUNT 8.1 10^3/uL (4.0-10.0)
[2024-10-10 14:06] LABS: ALBUMIN 4.1 G/DL (3.2-5.2); ALKALINE PHOSPHATASE 93 U/L (35-104); ALT/SGPT 30 U/L (7.0-40); AST/SGOT 20 U/L (<34); BILIRUBIN,TOTAL 0.4 MG/DL (0.3-1.2); BLOOD UREA NITROGEN 15 MG/DL (9-23); CARBON DIOXIDE LEVEL 29 MMOL/L (20-31); CHLORIDE LEVEL 104 MMOL/L (98-107); CHOLESTEROL LEVEL 229 MG/DL (<200); CHOLESTEROL RISK RATIO 5.06 (<5); CREATININE FOR GFR 0.65 MG/DL (0.55-1.30); GLOMERULAR FILTRATION RATE > 90.0 (>45); GLUCOSE, FASTING 113 MG/DL (74-106); HDL CHOLESTEROL 45.2 MG/DL (>40); LDL CHOLESTEROL 121.6 MG/DL (<100); NON-HDL-C 183.8 MG/DL; POTASSIUM SERUM 3.8 MMOL/L (3.5-5.1); SODIUM LEVEL 143 MMOL/L (136-145); TOTAL PROTEIN 7.5 G/DL (5.7-8.2); TRIGLYCERIDES LEVEL 311 MG/DL (<150)
[2024-10-10 14:08] LABS: THYROID STIMULATING HORMONE 3.006 uIU/ML (0.55-4.78)
[2024-10-10 14:17] LABS: HEMOGLOBIN A1c 5.3 % (4.0-6.0)
== END ==
LOC: M LAB REF 12:14
PROVIDERS: ATTEND Pediatrics
DX: E11.69 Type 2 diabetes mellitus with other specified complication (principal); E78.5 Hyperlipidemia, unspecified

== ENCOUNTER → 2025-02-07 | Outpatient (CLI) | payer MEDICARE, MEDICAID ==
[~2025-02-07] MED LIST changes: +TURM1CAP7 PO; -TURM500C3 PO
== END ==
LOC: M WHC 11:51
PROVIDERS: ATTEND Pediatrics
DX: Z12.31 Encounter for screening mammogram for malignant neoplasm of breast (principal); Z78.0 Asymptomatic menopausal state; M85.89 Other specified disorders of bone density and structure, multiple sites; R92.323 Mammographic fibroglandular density, bilateral breasts

== ENCOUNTER → 2025-02-07 | Outpatient (CLI) | payer MEDICARE, MEDICAID | LOC: M PLAIMG 11:57 | PROVIDERS: ATTEND Otolaryngology | DX: R04.2 Hemoptysis (principal); Z53.9 Procedure and treatment not carried out, unspecified reason ==